=== PATIENT | female | born 1990 | race Caucasian/White ===

== ENCOUNTER → 2021-01-01 11:10 | Outpatient (BNVA) | payer OTHER, SELFPAY | PROVIDERS: PCP Internal Medicine; Visit Provider Advanced Practice Midwife | DX: Z13.89 Encounter for screening for other disorder (principal) | CPT/HCPCS: 99212 ==

== ENCOUNTER → 2021-01-11 13:04 | Outpatient (BNVA) | payer OTHER, SELFPAY | PROVIDERS: PCP Internal Medicine; Visit Provider Advanced Practice Midwife | DX: Z30.017 Encounter for initial prescription of implantable subdermal contraceptive (principal) | CPT/HCPCS: 11981 ==

== ENCOUNTER → 2021-03-16 08:54 | Outpatient (BNVA) | payer OTHER, SELFPAY | PROVIDERS: Visit Provider Advanced Practice Midwife | DX: Z30.46 Encounter for surveillance of implantable subdermal contraceptive (principal); N64.4 Mastodynia | CPT/HCPCS: 99212 ==

== ENCOUNTER 2021-04-13 09:52 | Outpatient (REF) | payer OTHER, SELFPAY ==
[2021-04-19 05:42] LABS: HPV 16 RNA NOT DETECTED (NOT DETECTED); HPV mRNA E6/E7 rflx Detected (Not Detected)
== END 2021-04-13 09:53 | disposition home or self-care (01) ==
LOC: HO.LAB 09:52
PROVIDERS: Visit Provider Advanced Practice Midwife
DX: Z01.419 Encounter for gynecological examination (general) (routine) without abnormal findings (principal); Z11.51 Encounter for screening for human papillomavirus (HPV); Z80.3 Family history of malignant neoplasm of breast
CPT/HCPCS: 87624; 87625; 88142

== ENCOUNTER 2021-08-17 17:23 | Outpatient (REF) | payer OTHER, SELFPAY ==
[2021-08-17 17:42] LABS: IDNOW Serial# 08D9AD1C; Strep A Nucleic Acid Positive (Negative)
== END 2021-08-17 17:24 | disposition home or self-care (01) ==
LOC: HO.LNP 17:23
PROVIDERS: Visit Provider Physician Assistant Medical
DX: J02.9 Acute pharyngitis, unspecified (principal)
CPT/HCPCS: 87651

== ENCOUNTER 2021-12-03 10:17 | Outpatient (REF) | payer OTHER, SELFPAY ==
[2021-12-03 16:02] LABS: CT PCR NOT DETECTED (Not Detect.)
[2021-12-03 16:03] LABS: NG PCR NOT DETECTED (Not Detect.)
[2021-12-04 15:48] LABS: BV Int Neg Control Negative (Negative); BV Int Pos Control Positive (Positive)
== END 2021-12-03 10:18 | disposition home or self-care (01) ==
LOC: HO.LAB 10:17
PROVIDERS: Visit Provider Advanced Practice Midwife
DX: R10.2 Pelvic and perineal pain (principal); N64.4 Mastodynia; Z30.40 Encounter for surveillance of contraceptives, unspecified; Z32.00 Encounter for pregnancy test, result unknown
CPT/HCPCS: 81003; 81025; 87086; 87480; 87491; 87510; 87591; 87660; 99212

== ENCOUNTER 2022-07-09 05:52 | Emergency (ER) | payer OTHER, SELFPAY ==
--- NOTE | ~2022-07-09 | XR_ITS ---
EXAMINATION: XR CHEST CLINICAL INFORMATION: Chest pain COMPARISON: None TECHNIQUE: 2 views of the chest were obtained. FINDINGS: Lungs are well-inflated and clear. Trachea is midline in position. No interstitial disease, consolidation or mass. No pleural effusion or pneumothorax. Cardiac silhouette and pulmonary vessels are normal in size. The mediastinum and griffin have normal contour. The visualized bones, and upper abdomen, are unremarkable. XR/XR chest 2V IMPRESSION: No acute cardiopulmonary abnormality.
[2022-07-09 06:38] VITALS: BP 150/94; PULSE 80; RESP 16; TEMP 36.7; O2SAT 97; BMI 33.3
[2022-07-09 08:10] LABS: MANUAL DIFF FLAG NO
[2022-07-09 08:21] LABS: Basophils Absolute Auto 0.1 X10*3/uL (0.0-0.2); Basophils Percent Auto 0.9 % (0-2); Eosinophils Absolute Auto 0.1 X10*3/uL (0.0-0.4); Eosinophils Percent Auto 2.3 % (0-4); Hematocrit 41.3 % (37.0-47.0); Hemoglobin 13.9 g/dl (12.0-16.0); Imm Gran Abs Auto 0.02 X10*3/uL (0.00-0.03); Imm Gran Pct Auto 0.3 % (0.0-0.4); Lymphocytes Absolute Auto 1.3 X10*3/uL (1.2-4.9); Lymphocytes Percent Auto 22.9 % (20-40); Mean Corpuscular HGB Conc 33.7 g/dl (31.0-35.0); Mean Corpuscular Hemoglobin 28.1 pg (27.0-33.0); Mean Corpuscular Volume 83.4 fL (80.0-98.0); Mean Platelet Volume 9.6 fL (9.4-12.3); Monocytes Absolute Auto 0.3 X10*3/uL (0.1-1.2); Monocytes Percent Auto 5.2 % (2-11); Neutrophils Absolute Auto 3.9 x10*3/uL (2.0-8.3); Neutrophils Percent Auto 68.4 % (45-73); Platelet Count 213 X10*3/uL (160-400); Red Blood Count 4.95 X10*6/uL (4.20-5.50); White Blood Count 5.7 X10*3/uL (4.8-10.8)
--- NOTE | 2022-07-09 08:26 | ED.GENADULT ---
HPI - General Adult General Chief complaint: General Medical Stated complaint: in pain, blurry vision Time Seen by Provider: 07/09/22 07:23 Source: patient Mode of arrival: ambulatory Limitations: no limitations History of Present Illness HPI narrative: She presented to the emergency department with a chief complaint of right breast pain ongoing for months, denies any trauma any fever chills vomiting diarrhea. Onset (ago): month(s) Location: chest (Right breast) Radiation: non-radiation Severity: moderate Quality: burning Pain Consistency: constant Relieving factors: none Exacerbating factors: none Related Data Home Medications Medication Instructions Recorded Confirmed etonogestrel 68 mg subdermal subdermal 01/11/21 08/17/21 implant Previous Rx's Medication Instructions Recorded amoxicillin 875 mg-potassium 1 tab PO Q12H 10 days #20 tabs 08/17/21 clavulanate 125 mg tablet (Augmentin) dexamethasone 4 mg tablet 8 mg PO DAILY 1 day #2 tabs 08/17/21 metronidazole 500 mg tablet 500 mg PO BID 7 days #14 tabs 12/04/21 erythromycin 5 mg/gram (0.5 %) eye 0.5 inch ophthalmic (eye) TID #1 g 01/29/22 ointment Allergies Allergy/AdvReac Type Severity Reaction Status Date / Time No Known Allergies Allergy Verified 01/29/22 10:24 [No Known Allergies*] Review of Systems Review of Systems: Yes all other systems are reviewed and are negative Constitutional: Constitutional: Reports no additional constitutional complaints ENT: Reports system reviewed and no additional complaints, except as documented Cardiovascular: Cardiovascular: Reports no additional cardiovascular complaints Respiratory: Respiratory: Reports no additional respiratory complaints Genitourinary: Genitourinary: Reports no additional female genitourinary complaints Integumentary/Breasts: Skin/Breast: Reports system reviewed and no additional complaints, except as docu PMFSH Past Medical History Medical History Depression Head ache HTN (hypertension) Surgical History History of placement of ear tubes Hx of section Family History Family History Mother History of breast cancer Social History Social History Alcohol intake: former Substance Use Type: Marijuana Gender identity: Female Physical Exam ED Vital Signs: Vital Signs - 24 hr 07/09/22 06:38 07/09/22 09:14 Temperature 98.1 F 98.0 F Pulse Rate 80 83 Respiratory Rate 16 18 Blood Pressure 150/94 H 127/85 Pulse Oximetry 97 99 Oxygen Delivery Method Room Air Room Air BMI result Body Mass Index 33.3 Const General: cooperative and healthy appearing Nutritional Appearance: well nourished Orientation/consciousness: patient oriented x3 Limitations: no limitations HENMT Head: Yes normal to inspection Ears: hearing grossly normal bilaterally General nose exam: Normal external nose present Face and sinus: Yes normal facial exam Mouth: Normal oral and palatal mucosa present Throat: Yes posterior oropharynx normal Neck Neck: Yes normal visual inspection Carotids: normal carotid upstroke Chest Chest palpation & inspection: normal inspection of the chest Breast/axilla palpation: other (Examination the right breast shows no abscess no lump no induration) Resp Effort & Inspection: normal respiratory effort Auscultation: clear to auscultation bilaterally Cardio Jugular venous distension: no JVD Rate: regular rate Rhythm: regular rhythm GI Inspection: Yes normal to inspection Palpation (GI): Soft to palpation, not firm, nontender and no guarding Skin General skin exam: no rashes or lesions noted Neuro General: patient oriented x3 Medical Decision Making Lab Data Result diagrams: 07/09/22 08:05 07/09/22 08:05 Labs: Lab Results 07/09/22 07/09/22 Range/Units 08:05 08:05 WBC 5.7 (4.8-10.8) X10*3/uL RBC 4.95 (4.20-5.50) X10*6/uL Hgb 13.9 (12.0-16.0) g/dl Hct 41.3 (37.0-47.0) % MCV 83.4 (80.0-98.0) fL MCH 28.1 (27.0-33.0) pg MCHC 33.7 (31.0-35.0) g/dl RDW 13.0 (11.0-16.0) % Plt Count 213 (160-400) X10*3/uL MPV 9.6 (9.4-12.3) fL Immature Gran % (Auto) 0.3 (0.0-0.4) % Neut % (Auto) 68.4 (45-73) % Lymph % (Auto) 22.9 (20-40) % [place] % (Auto) 5.2 (2-11) % Eos % (Auto) 2.3 (0-4) % Baso % (Auto) 0.9 (0-2) % Lymph # (Auto) 1.3 (1.2-4.9) X10*3/uL [place] # (Auto) 0.3 (0.1-1.2) X10*3/uL Eos # (Auto) 0.1 (0.0-0.4) X10*3/uL Baso # (Auto) 0.1 (0.0-0.2) X10*3/uL Abs Immat Gran (auto) 0.02 (0.00-0.03) X10*3/uL Absolute Neuts (auto) 3.9 (2.0-8.3) x10*3/uL Absolute Nucleated RBC 0.000 (0.0-0.012) X10*3/uL Nucleated RBC % (auto) 0.0 (0.0-0.2) /100WBC Sodium 140 (135-145) mmol/L Potassium 4.6 (3.3-5.1) mmol/L Chloride 106 (96-108) mmol/L Carbon Dioxide 25 (22-29) mmol/L Anion Gap 14 (12-20) BUN 10 (9-16) mg/dL Creatinine 0.71 (0.5-1.4) mg/dL Estim Creat Clear Calc 126.6 Estimated GFR > 60 Random Glucose 111 (60-115) mg/dL Calcium 9.2 (8.4-10.2) mg/dL Total Bilirubin 0.7 (0.0-1.0) mg/dL AST 13 (5-31) U/L ALT 17 (0-31) U/L Alkaline Phosphatase 44 (39-117) U/L Total Protein 7.7 (6.5-8.0) g/dL Albumin 4.5 (3.5-5.0) g/dL Beta HCG, Quant < 2 mIU/mL Discharge Plan Discharge Clinical Impression: Breast pain Patient Disposition: Home, Self-Care Instructions: Chest Wall Pain (ED) Prescriptions: No Action metronidazole 500 mg tablet 500 mg PO BID 7 Days Qty: 14 0RF amoxicillin-pot clavulanate [Augmentin] 875-125 mg tablet 1 tab PO Q12H 10 Days Qty: 20 0RF dexamethasone 4 mg tablet 8 mg PO DAILY 1 Days Qty: 2 0RF erythromycin 5 mg/gram (0.5 %) ointment 0.5 inch ophthalmic (eye) TID Qty: 1 0RF Nexplanon 68 mg implant subdermal Stand Alone Forms: Work/School Release Interventions: ED Discharge Assessment Last Done: 07/09/22 09:21 Discharge Date/Time: 07/09/22 09:22
[2022-07-09 08:33] LABS: Alanine Aminotransferase 17 U/L (0-31); Albumin Level 4.5 g/dL (3.5-5.0); Alkaline Phosphatase 44 U/L (39-117); Anion Gap 14 (12-20); Aspartate Amino Transferase 13 U/L (5-31); Bilirubin Total 0.7 mg/dL (0.0-1.0); Blood Urea Nitrogen 10 mg/dL (9-16); Calcium 9.2 mg/dL (8.4-10.2); Carbon Dioxide 25 mmol/L (22-29); Chloride 106 mmol/L (96-108); Creatinine Clr Calc Pharmacy 126.6; Estimated Glomerular Filt Rate > 60; Glucose Random 111 mg/dL (60-115); Potassium 4.6 mmol/L (3.3-5.1); Sodium 140 mmol/L (135-145); Total Protein 7.7 g/dL (6.5-8.0)
[2022-07-09 08:39] LABS: HCG Quantitative < 2 mIU/mL
[2022-07-09 09:14] VITALS: BP 127/85; PULSE 83; RESP 18; TEMP 36.7; O2SAT 99
== END 2022-07-09 09:22 | disposition home or self-care (01) ==
PROVIDERS: Emergency Provider Emergency Medicine
DX: H53.8 Other visual disturbances (principal); N64.4 Mastodynia; R07.89 Other chest pain; Z79.899 Other long term (current) drug therapy
CPT/HCPCS: 36415; 71046; 80053; 84702; 85025; 99283; 99284

== ENCOUNTER → 2022-07-10 12:57 | Outpatient (BNVA) | payer OTHER, SELFPAY | PROVIDERS: Visit Provider Advanced Practice Midwife | DX: N64.4 Mastodynia (principal); Z80.3 Family history of malignant neoplasm of breast | CPT/HCPCS: 99212 ==

== ENCOUNTER 2022-07-19 13:20 | Outpatient (REF) | payer OTHER, SELFPAY ==
--- NOTE | ~2022-07-19 | MM_ITS ---
EXAMINATION: MM DIAGNOSTIC DIGITAL BREAST TOMOSYNTHESIS, BILATERAL US DIAGNOSTIC ULTRASOUND BREAST, RIGHT CLINICAL INFORMATION: 32-year-old female with chronic noncyclical right breast pain, approximately one year. No palpable mass or discharge. No prior breast imaging. Family history breast cancer, mother. The lifetime risk of breast cancer based on the Tyrer-Cuzick Model is 18%. COMPARISON: None (current study represents initial baseline exam). TECHNIQUE: Digital breast tomosynthesis is performed in both the craniocaudal and mediolateral oblique views along with computer-aided detection (CAD). Synthesized 2D images are generated from the tomosynthesis. Additional views are obtained: Right ML, right MLO, spot right CC. Ultrasound right breast is targeted to the areas of clinical concern with grayscale imaging and color Doppler without and with harmonics. Imaging performed from 10:00 through 4:00 position. FINDINGS: The breasts are heterogeneously dense, which may obscure small masses (ACR BI-RADS breast composition Category c). There is small oval parenchymal asymmetry posterior 3:30 o'clock right breast, just under1.5 cm. The remainder of the bilateral breasts show no mass or architectural abnormality. There are no abnormal calcifications. The axilla are unremarkable. There is no skin thickening or coarsening of the Handy's ligaments. Ultrasound right breast demonstrates a macrolobulated solid mass 3:00 position approximately 9 cm from nipple measuring around 1.4 cm in greatest dimension. The remainder of the right breast shows no cystic or solid mass or architectural abnormality. No focal duct ectasia. No skin thickening or edema tracking in soft tissue planes. Results are discussed with the patient at time of visit. The solid nodule posterior medial right breast most likely represents a benign fibroadenoma. Management options were discussed. Patient favors percutaneous sampling rather than serial imaging follow-up. Results called to office (CHITO Marmolejo) for comparison Kia Salazar CNM on 07/19/2022. MM/MM tomosynthesis diagnostic BI IMPRESSION: -No mammographic evidence of malignancy or inflammatory changes. -Macrolobulated solid mass right posteromedial breast, probable fibroadenoma. ASSESSMENT: BI-RADS 4: Suspicious (subcategory 4A: Low suspicion for malignancy) RECOMMENDATION: -Ultrasound-guided core biopsy right breast mass. -Patient's chronic noncyclical right breast pain may be managed based on the clinical impression. This patient's information was entered into a reminder system with a target due date for their next mammogram.
== END 2022-07-19 13:21 | disposition home or self-care (01) ==
LOC: HO.MAMMO 13:20
PROVIDERS: Visit Provider Advanced Practice Midwife
DX: N64.4 Mastodynia (principal); Z80.3 Family history of malignant neoplasm of breast
CPT/HCPCS: 76642; 77062; 77066

== ENCOUNTER 2022-07-23 09:08 | Outpatient (REF) | payer OTHER, SELFPAY ==
--- NOTE | ~2022-07-23 | MM_ITS ---
EXAMINATION: ULTRASOUND GUIDED CORE BIOPSY BREAST, RIGHT POST PROCEDURE DIGITAL MAMMOGRAM, RIGHT CLINICAL INFORMATION: 32-year-old with palpable nodule posterior medial right breast, likely fibroadenoma. Family history breast cancer, mother. TC score 18%. COMPARISON: Mammography and right breast ultrasound 07/19/2022. FINDINGS: Proper informed consent is obtained from the patient after discussion of the procedure, potential risks and complications, and alternatives. Patient was given an opportunity for questions. The patient appeared to understand. The patient consented to the procedure and signed the consent form. GUIDANCE: Ultrasound-guided; aseptic technique. LESION: Macrolobulated nodule posterior 3:30 o'clock right breast, approximately 1.4 cm. Suspect fibroadenoma. APPROACH: Oblique caudal cranial. ANESTHESIA: 10 mL carbonated 1% lidocaine. DERMATOTOMY: Single skin willi dermatotomy performed. NEEDLE: 14-gauge Achieve core biopsy device with 13.5-gauge co-axial guide needle. CORES: 6. CLIP: HydroMARK; shape: butterfly. POST PROCEDURE UNILATERAL DIGITAL MAMMOGRAM: The post biopsy mammogram is performed in separate room using separate digital mammography equipment from the biopsy procedure. CC and MLO x2 views are obtained. The breasts are heterogeneously dense, which may obscure small masses (breast composition category: c). The clip marker is in position. No gross hematoma. The patient tolerated the procedure well. No immediate complications. Home instructions reviewed with the patient. Final pathology results are pending. MM/MM tomosynthesis diagnostic RT IMPRESSION: 1. Status post ultrasound-guided core biopsy right breast. 2. Clip placed: HydroMARK; shape: butterfly. 3. Pathology pending. An addendum report will be issued.
[2022-07-23] MEDS: Lidocaine HCl 1 % 20 ML VIAL 9 ML SUBCUT (10:55)
[2022-07-23] MEDS: Sodium Bicarbonate 8.4% 50 MEQ/50 ML VIAL SUBCUT (10:55)
== END 2022-07-23 09:09 | disposition home or self-care (01) ==
LOC: HO.MAMMO 09:08
PROVIDERS: Absent Provider Surgery; Visit Provider Advanced Practice Midwife
DX: N63.15 Unspecified lump in the right breast, overlapping quadrants (principal); N64.4 Mastodynia; Z80.3 Family history of malignant neoplasm of breast
CPT/HCPCS: 19083; 77061; 77065; 88305; 99202

== ENCOUNTER → 2022-07-26 09:54 | Outpatient (BNVA) | payer OTHER, SELFPAY | PROVIDERS: PCP Advanced Practice Midwife; Visit Provider Surgery | DX: D24.1 Benign neoplasm of right breast (principal); N64.4 Mastodynia; R92.8 Other abnormal and inconclusive findings on diagnostic imaging of breast; Z80.3 Family history of malignant neoplasm of breast | CPT/HCPCS: 99212 ==

== ENCOUNTER 2022-08-07 08:39 | Day surgery (SDC) | payer OTHER, SELFPAY ==
[2022-08-02 11:24] VITALS: BMI 36.4
--- NOTE | 2022-08-06 08:27 | HO.ANESPROP2 ---
Documented by User: Zainab Frye NP 08/06/22 08:28 HPI - Anesthesia Eval Consult details Narrative: 32yo F for Right Breast Lumpectomy/Needle Loc PMFSH Active Problems Active Problems: All Active Problems (Updated 07/29/22 @ 11:38 by Kenton Vázquez MD) Fibroadenoma of right breast (Acute) Abnormal ultrasound of breast (Acute) Family history of breast cancer in first degree relative (Acute) Mastalgia in female (Acute) Conjunctivitis, both eyes (Acute) Acute pharyngitis (Acute) Past Medical History Medical History Depression Head ache HTN (hypertension) Family History Family History Mother History of breast cancer Surgical History Surgical History History of placement of ear tubes Hx of section Social History Social History Alcohol intake: former Patient Tobacco Use Status: Never used Tobacco Substance Use Type: Marijuana Are you DNR?: No Advance Directives: No Advance Directives Information Provided: Yes Patient : No FDLMP: last mth Sexual orientation: Straight/Heterosexual Gender identity: Female Meds Allergies Allergy/AdvReac Type Severity Reaction Status Date / Time No Known Allergies Allergy Verified 07/26/22 10:23 [No Known Allergies*] Home Medications Medication Instructions Recorded Confirmed Last Taken Type etonogestrel 68 mg subdermal subdermal 01/11/21 07/26/22 Unknown History implant Exam Exam Date and Time: August 06, 2022 0827 Height,Weight and Vital Signs: Height 5 ft 5 in Weight 99.337 kg Pertinent Lab Results Pertinent Lab Results: Laboratory Tests 07/09/22 07/09/22 08:05 08:05 WBC 5.7 Hgb 13.9 Hct 41.3 Plt Count 213 Sodium 140 Potassium 4.6 Chloride 106 Carbon Dioxide 25 BUN 10 Creatinine 0.71 Assessment and Plan Assessment Anesthesia Assessment: Chart Reviewed Documented by User: Tati Foote MD 08/07/22 12:11 PMF Past Medical History Medical History Depression Head ache HTN (hypertension) Functional capacity: independent ambulation Patient : No Family History Family History Mother History of breast cancer Family history of problems with anesthesia: No Surgical History Surgical History History of placement of ear tubes Hx of section History of Problems with Anesthesia: No Social History Social History Alcohol intake: former Patient Tobacco Use Status: Never used Tobacco Substance Use Type: Marijuana Are you DNR?: No Advance Directives: No Advance Directives Information Provided: Yes Patient : No FDLMP: last mth Sexual orientation: Straight/Heterosexual Gender identity: Female Meds Allergies Allergy/AdvReac Type Severity Reaction Status Date / Time No Known Allergies Allergy Verified 07/26/22 10:23 [No Known Allergies*] Home Medications Medication Instructions Recorded Confirmed Last Taken Type etonogestrel 68 mg subdermal subdermal 01/11/21 07/26/22 Unknown History implant Exam Airway Mallampati Class: II TM Dist: >3cm Neck ROM: Full Heart: RRR Lungs: CTA Assessment and Plan Final Anesthetic Review Family History of Problems with Anesthesia: No History of Problems with Anesthesia: No ASA Class: II Final Preanesthetic Review: No Changes in Pt Med Stat, Meds/Allgs Chart Reviewed, Consent Obtained/Reviewed and Anes Risks/Benef Reviewed Patient Risk: Low Procedure Risk: Low Anesthetic Plan Anesthetic Plan: GA Disposition: Standard PACU
--- NOTE | ~2022-08-07 | MM_ITS ---
EXAMINATION: US ULTRASOUND-GUIDED NEEDLE LOCALIZATION BREAST, RIGHT MM DIGITAL MAMMOGRAPHY BREAST POST LOCALIZATION, RIGHT NEEDLE LOCALIZATION SPECIMEN RADIOGRAPH FROM THE RIGHT BREAST CLINICAL INFORMATION: Fibroadenoma posterior medial right breast for excision. COMPARISON: Mammography and right breast ultrasound 07/19/2022 and 07/23/2022. TECHNIQUE NEEDLE LOC: Proper informed consent is obtained from the patient after discussion of the procedure, potential risks and complications, and alternatives including declining the procedure today. Patient was given an opportunity for questions. The patient appeared to understand. The patient consented to the procedure and signed the consent form. GUIDANCE: Real time ultrasound guidance APPROACH: Oblique caudal cranial. TARGET: Fibroadenoma postero medial right breast with HydroMark clip marker. ANESTHESIA: 8 mL carbonated lidocaine 1% LOCALIZATION MARKER: [place] MammaLok 7.5 cm length. POSTPROCEDURE UNILATERAL DIGITAL MAMMOGRAM: [facility] The breasts are heterogeneously dense, which may obscure small masses (ACR BI-RADS breast composition Category c). The biopsy clip marker is adjacent to the distal end of the localization needle. The wire is beyond the clip expected. The skin is prepped and local anesthesia administered. The needle is placed and position assessed with real time ultrasound. The wire is hooked into position. [place] needle protector placed. The patient tolerated the procedure well and had no immediate complication. Procedure results called to medical historian (Zainab) for Dr. Vázquez following the procedure. TECHNIQUE SPECIMEN RADIOGRAPH: Single radiograph of the excised breast tissue is performed. FINDINGS SPECIMEN RADIOGRAPH: The proximal needle and wire are sectioned in OR prior to delivery to radiology. The specimen shows the distal needle and distal hookwire are delivered intact. The biopsy clip marker is identified in the specimen adjacent to the localization needle. Results are called to Dr. Kenton Vázquez in the operating room at the time of imaging. MM/MM diagnostic mammo unilat RT IMPRESSION: 1. Status post ultrasound-guided right breast needle localization with wire hooked into position. 2. Postoperative specimen radiograph obtained.
[2022-08-07 09:38] VITALS: BP 144/93; PULSE 92; RESP 18; TEMP 36.6; O2SAT 98
[2022-08-07 09:59] LABS: UPreg QC Valid YES; Urine Pregnancy NEGATIVE (NEGATIVE)
[2022-08-07] MEDS: Lactated Ringers 1,000 ML 100 ML IVCONT (10:00)
--- NOTE | 2022-08-07 11:04 | MHC.SHP ---
Pre-Procedural Eval Section A Date of Service: 08/07/22 The patient is an INPATIENT: No Changes since office visit: Yes Patient answered all questions; No Cold of Flu in the past 2 weeks, No New Medical Problems and No Changes in Medication The History & Physical has been completed within 30 days and I have reviewed it.: Yes Section B Chief Complaint: Benign neoplasm of right breast Allergies: Allergies Allergy/AdvReac Type Severity Reaction Status Date / Time No Known Allergies Allergy Verified 07/26/22 10:23 [No Known Allergies*] Plan Diagnosis/Plan: Unchanged I have reviewed the history and physical and performed a pertinent physical examination on my patient. No changes have occurred unless specified.
[2022-08-07] MEDS: Lidocaine HCl 1 % MPF 5 ML VIAL 10 ML SUBCUT (11:39)
--- NOTE | 2022-08-07 12:11 | W.PM.OPN ---
Operative Note Operative Note Date of Service: 08/07/22 Narrative: Preoperative diagnosis: Fibroadenoma right breast Postoperative diagnosis: same Procedure: excision of fibroadenoma right breast Surgeon: Kenton Vázquez MD Japanese Tutor: Анна Deutsch PA-C, KATHY Conti Anesthesia: LMA general Indications for procedure: 32-year-old female patient presenting with a density in the right breast at the 3 o'clock position also noted on ultrasound. She subsequently underwent ultrasound-guided core biopsy which confirmed a fibroadenoma without atypia or malignancy. Patient has decided to have the lesion removed. She therefore presents today for a right breast lumpectomy with needle localization. Operative findings: Specimen x-ray confirms marking clip within the specimen. Specimen: right breast lumpectomy Estimated blood loss: 5 mL Complications: none Procedure details: patient was brought to the OR placed in a supine position. After administering general anesthesia the patient's right breast was prepped with ChloraPrep and draped in a sterile fashion. A surgical time-out was called And the consent confirmed. The patient received preoperative antibiotics and Venodyne boots were in place. Local anesthesia consisting of 0.5% Sensorcaine was then infiltrated just above the localizing needle entrance site in a transverse fashion at approximately 03:00 o'clock position. Incision was then made with a scalpel carried out through subcutaneous tissue. Superior inferior skin flaps were then created with electrocautery. Core of tissue around the localizing needle was then excised beginning at the superior margin then continuing to the medial and lateral margin, followed by the inferior margin and deep margin. The needle was cut with a pre assembly wirer and the lesion excised. Margins were marked with a long suture on the lateral margin, short suture on the superior margin and loop suture in the deep margin. Wounds were irrigated with saline solution suctioned dry. Wounds were checked for hemostasis which was assured using electrocautery. Deep breast tissue was then reapproximated using interrupted 3-0 Polysorb sutures. Dermis was reapproximated using interrupted 3-0 Polysorb sutures. Skin was then closed using a running subcuticular 4-0 Polysorb suture. Steri-Strips and 2 x 2 gauze were then applied followed by Tegaderm. The patient tolerated the procedure well. Sponge, instrument, and needle counts were reported as correct. The patient was transferred to PACU in stable condition.
[2022-08-07 12:33] VITALS: BP 146/86; PULSE 90; RESP 18; TEMP 36.8; O2SAT 98
[2022-08-07 12:38] VITALS: BP 148/89; PULSE 83; RESP 19; O2SAT 98
[2022-08-07 12:43] VITALS: BP 144/87; PULSE 78; RESP 15; O2SAT 98
[2022-08-07 12:48] VITALS: BP 148/85; PULSE 80; RESP 17; O2SAT 98
[2022-08-07 13:03] VITALS: BP 159/90; PULSE 98; RESP 19; TEMP 36.8; O2SAT 99
== END 2022-08-07 14:19 | disposition home or self-care (01) ==
PROVIDERS: Nurse Practitioner; Visit Provider Surgery
PROC: (CPT 19301; principal; 2022-08-07 11:50)
DX: D24.1 Benign neoplasm of right breast (principal); Z80.3 Family history of malignant neoplasm of breast; N64.4 Mastodynia; I10 Essential (primary) hypertension; R51.9 Headache, unspecified; F32.A Depression, unspecified; F12.90 Cannabis use, unspecified, uncomplicated
CPT/HCPCS: 19301; 19285; 77062; 77065; 81025; 88307; 88329; A4648; J0690; J1100; J2250; J2405; J2795; J3010

== ENCOUNTER 2022-12-04 13:14 | Outpatient (REF) | payer OTHER, SELFPAY ==
[2022-12-07 07:33] LABS: HPV mRNA E6/E7 rflx Not Detected (Not Detected)
== END 2022-12-04 13:15 | disposition home or self-care (01) ==
LOC: HO.LNP 13:14
PROVIDERS: Visit Provider Advanced Practice Midwife
DX: Z01.419 Encounter for gynecological examination (general) (routine) without abnormal findings (principal)
CPT/HCPCS: 87624; 88142

== ENCOUNTER 2023-01-31 06:45 | Emergency (ER) | payer OTHER, SELFPAY ==
--- NOTE | ~2023-01-31 | CT_ITS ---
EXAMINATION: CT ABDOMEN AND PELVIS WITHOUT CONTRAST CLINICAL INFORMATION: Abdominal pain. COMPARISON: None available. TECHNIQUE: Multidetector volumetric imaging was performed from the superior aspect of the liver through the pubic symphysis. Sagittal and coronal reformatted images were obtained on the technologist's workstation. This CT examination was performed using dose optimization techniques as appropriate, variously including the following: *Automated exposure control *Adjustment of mA and/or kV according to patient size (this includes techniques or standardized protocols for targeted exams where dose is matched to indication/reason for exam; i.e. extremities or head) *Use of iterative reconstruction technique DLP: 852 mGy-cm FINDINGS: LUNG BASES: The visualized lung bases are unremarkable. LIVER, GALLBLADDER, AND BILIARY TREE: Hepatic enlargement and diffuse decreased attenuation without focal abnormality. No gallbladder/biliary abnormality. PANCREAS: Unremarkable. SPLEEN: Unremarkable. ADRENAL GLANDS: Unremarkable. 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 No hydronephrosis, hydroureter, or calculi seen. No perinephric stranding. BLADDER: Unremarkable. GASTROINTESTINAL TRACT: The stomach, small bowel and appendix are unremarkable. The colon and rectum are unremarkable. ABDOMINAL WALL: Small fat-containing umbilical hernia without associated abnormality. LYMPH NODES: No lymphadenopathy. VASCULAR: Unremarkable. PELVIC VISCERA: Unremarkable. OSSEOUS STRUCTURES: L5-S1 mild disc space narrowing. CT/CT abdomen pelvis wo IV con IMPRESSION: 1. No acute intra-abdominal/pelvic abnormality to explain the patient's pain. 2. Hepatomegaly and hepatic steatosis without focal abnormality. 3. Small fat-containing umbilical hernia without associated abnormality. 4. L5-S1 mild disc space narrowing.
[2023-01-31 06:52] VITALS: BP 145/93; PULSE 84; RESP 18; TEMP 36.7; O2SAT 98; BMI 38.3
--- NOTE | 2023-01-31 07:24 | ED_ITS ---
HPI - Nausea/Vomiting/Diarrhea General Chief complaint: Nausea/Vomiting/Diarrhea Stated complaint: vomiting/basqa108/dizziness Time Seen by Provider: 01/31/23 07:02 History of Present Illness HPI Narrative: Patient is a 32-year-old female presents today with having nausea. No history of abdominal surgery in the past. Patient had episodes of vomiting yesterday. Had a fever this morning of up to 102. Did not take any medication. Denies any pain on urination. No change in frequency. No coughing or congestion or upper respiratory symptoms. No diaphoresis. Patient from home. Related Data Home Medications Medication Instructions Recorded Confirmed etonogestrel 68 mg subdermal subdermal 01/11/21 08/15/22 implant Previous Rx's Medication Instructions Recorded ondansetron 4 mg disintegrating 4 mg PO TID PRN nausea and 01/31/23 tablet vomiting 5 days #10 tabs sulfamethoxazole 800 1 tab PO BID 7 days #14 tabs 01/31/23 mg-trimethoprim 160 mg tablet (Bactrim DS) Allergies Allergy/AdvReac Type Severity Reaction Status Date / Time No Known Allergies Allergy Verified 01/31/23 06:55 [No Known Allergies*] Review of Systems Review of Systems: Positive nausea Positive fever Yes all other systems are reviewed and are negative PMFSH Past Medical History Attestation statement: The following information was validated with the patient. Medical History Abnormal Pap smear of cervix Depression Head ache HTN (hypertension) Surgical History History of lumpectomy of right breast (08/07/22) History of placement of ear tubes Hx of section Family History Family History Mother History of breast cancer Social History Social History Alcohol intake: never Patient Tobacco Use Status: Never used Tobacco Smoked in Last 30 Days: No Use of substances other than those prescribed or required for medical reasons: No Substance Use Type: Marijuana Advance Directives: No Advance Directives Information Provided: Yes Patient : No Sexual orientation: Straight/Heterosexual Gender identity: Female Physical Exam Vital Signs: Vital Signs: Last Vital Signs Temp 98.7 F 01/31/23 11:03 Pulse 83 01/31/23 11:03 Resp 13 01/31/23 11:03 BP 132/84 01/31/23 11:03 Pulse Ox 97 01/31/23 11:03 O2 Del Method Room Air 01/31/23 11:03 BMI result Body Mass Index 38.3 Appearance: Alert. Oriented X3. No acute distress. Eyes: Pupils equal, round and reactive to light. ENT: Pharynx normal. Neck: Normal inspection. Neck supple. No lymph nodes noted. No crepitus CVS: Normal heart rate and rhythm. Pulses normal. Normal S1 and S2 Respiratory: No respiratory distress. Breath sounds normal. No Wheezing. No rales Abdomen: Soft and nontender. No rigidity. No distention. good BS x4 Skin: Skin warm and dry. Normal skin color. Normal skin turgor. Extremities: No lower extremity edema. Neurovascular intact to all extremities. No Lacerations. No Rash Neuro: Oriented X 3. No motor deficit. No sensory deficit. Moving all extermities. No slurred speech Medications Administered Discontinued Medications Generic Name Dose Route Start Last Admin Trade Name Freq PRN Reason Stop Dose Admin Sodium Chloride 1,000 mls @ 999 mls/hr 01/31/23 07:30 01/31/23 09:24 Ns IV 01/31/23 08:30 Infused .Q1H1M ALE Infusion Ceftriaxone Sodium 1 gm/ 50 mls @ 100 mls/hr 01/31/23 08:12 01/31/23 09:24 Sodium Chloride IV 01/31/23 08:41 Infused ONCE ONE Infusion Ondansetron HCl 4 mg 01/31/23 07:23 01/31/23 07:56 Ondansetron Hcl 4 Mg/2 Ml Vial IVPUSH 01/31/23 07:24 4 mg ONCE ONE Administration Medical Decision Making Medical Decision Making MDM Narrative: Patient's CT of the abdomen pelvis showed no acute evidence of obstruction abscess perforation. No evidence of biliary disease. No evidence for appendicitis. Urine did show a UTI. There is no CVA tenderness no evidence for pyelo. Labs are otherwise unremarkable. Given a dose of Rocephin will give additional antibiotic on an outpatient basis patient is young healthy no significant past medical history she will be discharged home. Currently in stable condition. Well appearing. Tolerating fluids. Patient's RSV COVID influenza were all negative. Differential Diagnosis Urinary tract infection, obstruction, abscess, perforation, appendicitis Admission/Observation Consideration of admission/observation: Escalation of care including admission/observation considered Lab Data MDM Lab Attestation statement: I reviewed the patient's lab results. 01/31/23 07:50 01/31/23 07:50 Labs: Lab Results 01/31/23 01/31/23 01/31/23 Range/Units 07:50 07:50 07:50 WBC 4.9 (4.8-10.8) X10*3/uL RBC 4.95 (4.20-5.50) X10*6/uL Hgb 14.0 (12.0-16.0) g/dl Hct 40.5 (37.0-47.0) % MCV 81.8 (80.0-98.0) fL MCH 28.3 (27.0-33.0) pg MCHC 34.6 (31.0-35.0) g/dl RDW 13.2 (11.0-16.0) % Plt Count 226 (160-400) X10*3/uL MPV 9.2 L (9.4-12.3) fL Immature Gran % (Auto) 0.2 (0.0-0.4) % Neut % (Auto) 59.2 (45-73) % Lymph % (Auto) 32.5 (20-40) % [place] % (Auto) 5.5 (2-11) % Eos % (Auto) 2.0 (0-4) % Baso % (Auto) 0.6 (0-2) % Lymph # (Auto) 1.6 (1.2-4.9) X10*3/uL [place] # (Auto) 0.3 (0.1-1.2) X10*3/uL Eos # (Auto) 0.1 (0.0-0.4) X10*3/uL Baso # (Auto) 0.0 (0.0-0.2) X10*3/uL Abs Immat Gran (auto) 0.01 (0.00-0.03) X10*3/uL Absolute Neuts (auto) 2.9 (2.0-8.3) x10*3/uL Absolute Nucleated RBC 0.000 (0.0-0.012) X10*3/uL Nucleated RBC % (auto) 0.0 (0.0-0.2) /100WBC Sodium 141 (135-145) mmol/L Potassium 4.4 (3.3-5.1) mmol/L Chloride 108 (96-108) mmol/L Carbon Dioxide 25 (22-29) mmol/L Anion Gap 12 (12-20) BUN 7 L (9-16) mg/dL Creatinine 0.74 (0.5-1.4) mg/dL Estim Creat Clear Calc 130.9 Estimated GFR > 60 Random Glucose 113 (60-115) mg/dL Calcium 9.4 (8.4-10.2) mg/dL Total Bilirubin 0.7 (0.0-1.0) mg/dL Direct Bilirubin 0.2 (0.0-0.5) mg/dL AST 15 (5-31) U/L ALT 26 (0-31) U/L Alkaline Phosphatase 49 (39-117) U/L Total Protein 7.5 (6.5-8.0) g/dL Albumin 4.5 (3.5-5.0) g/dL Urine Color Yellow Urine Appearance Cloudy Urine pH 6.0 (5.0-9.0) Ur Specific [place] 1.015 (1.005-1.025) Urine Protein Negative (Neg-Trace) mg/dL Urine Glucose (UA) Negative (Negative) mg/dL Urine Ketones Negative (Negative) mg/dL Urine Blood Negative (Negative) Urine Nitrite Negative (Negative) Ur Leukocyte Esterase Moderate (2+) H (Negative) Urine RBC 0-2 (0-2) /HPF Urine WBC 0-5 (0-5) /HPF Ur Squamous Epith Cells 11-20 (0-2) /HPF Urine Bacteria 3+ (None Seen) Hyaline Casts 0-2 (0-2) /LPF Urine Test (NEGATIVE) Influenza Type A (PCR) (Negative) Influenza Type B (PCR) (Negative) RSV RNA Qual (PCR) (Negative) SARS-CoV-2 RNA (RT-PCR) (Negative) 01/31/23 01/31/23 Range/Units 07:50 07:52 WBC (4.8-10.8) X10*3/uL RBC (4.20-5.50) X10*6/uL Hgb (12.0-16.0) g/dl Hct (37.0-47.0) % MCV (80.0-98.0) fL MCH (27.0-33.0) pg MCHC (31.0-35.0) g/dl RDW (11.0-16.0) % Plt Count (160-400) X10*3/uL MPV (9.4-12.3) fL Immature Gran % (Auto) (0.0-0.4) % Neut % (Auto) (45-73) % Lymph % (Auto) (20-40) % [place] % (Auto) (2-11) % Eos % (Auto) (0-4) % Baso % (Auto) (0-2) % Lymph # (Auto) (1.2-4.9) X10*3/uL [place] # (Auto) (0.1-1.2) X10*3/uL Eos # (Auto) (0.0-0.4) X10*3/uL Baso # (Auto) (0.0-0.2) X10*3/uL Abs Immat Gran (auto) (0.00-0.03) X10*3/uL Absolute Neuts (auto) (2.0-8.3) x10*3/uL Absolute Nucleated RBC (0.0-0.012) X10*3/uL Nucleated RBC % (auto) (0.0-0.2) /100WBC Sodium (135-145) mmol/L Potassium (3.3-5.1) mmol/L Chloride (96-108) mmol/L Carbon Dioxide (22-29) mmol/L Anion Gap (12-20) BUN (9-16) mg/dL Creatinine (0.5-1.4) mg/dL Estim Creat Clear Calc Estimated GFR Random Glucose (60-115) mg/dL Calcium (8.4-10.2) mg/dL Total Bilirubin (0.0-1.0) mg/dL Direct Bilirubin (0.0-0.5) mg/dL AST (5-31) U/L ALT (0-31) U/L Alkaline Phosphatase (39-117) U/L Total Protein (6.5-8.0) g/dL Albumin (3.5-5.0) g/dL Urine Color Urine Appearance Urine pH (5.0-9.0) Ur Specific [place] (1.005-1.025) Urine Protein (Neg-Trace) mg/dL Urine Glucose (UA) (Negative) mg/dL Urine Ketones (Negative) mg/dL Urine Blood (Negative) Urine Nitrite (Negative) Ur Leukocyte Esterase (Negative) Urine RBC (0-2) /HPF Urine WBC (0-5) /HPF Ur Squamous Epith Cells (0-2) /HPF Urine Bacteria (None Seen) Hyaline Casts (0-2) /LPF Urine Test NEGATIVE (NEGATIVE) Influenza Type A (PCR) NEGATIVE (Negative) Influenza Type B (PCR) NEGATIVE (Negative) RSV RNA Qual (PCR) NEGATIVE (Negative) SARS-CoV-2 RNA (RT-PCR) NEGATIVE (Negative) Independent Historian Clinical information obtained from an independent historian. History obtained from or confirmed by: Parent External Record Review External record reviewed: Outpatient record Discharge Plan Discharge Clinical Impression: Urinary tract infection Patient Disposition: Home, Self-Care Instructions: Urinary Tract Infection in Women (DC) Prescriptions: New sulfamethoxazole-trimethoprim [Bactrim DS] 800-160 mg tablet 1 tab PO BID 7 Days Qty: 14 0RF ondansetron 4 mg tablet,disintegrating 4 mg PO TID PRN (Reason: nausea and vomiting) 5 Days Qty: 10 0RF No Action etonogestrel 68 mg implant subdermal Referrals: Physician,Unknown J [Primary Care Provider] -
[2023-01-31] MEDS: 0.9 % Sodium Chloride 1,000 ML 999 ML IV (07:56)
[2023-01-31] MEDS: ondansetron HCL 4 MG/2 ML VIAL IVPUSH (07:56)
[2023-01-31 07:58] LABS: MANUAL DIFF FLAG NO
[2023-01-31 08:01] LABS: Appearance Urine Cloudy; Color Urine Yellow; Glucose Urine UA Negative (Negative); Leukocyte Esterase Urine Moderate (2+) (Negative); Nitrite Urine Negative (Negative); Specific Gravity - Urine 1.015 (1.005-1.025); UMIC TRIGGER UACC YES; Urine Blood Negative (Negative); Urine Ketones Negative (Negative); Urine Protein Negative (Neg-Trace)
[2023-01-31 08:02] LABS: UPreg QC Valid YES; Urine Pregnancy NEGATIVE (NEGATIVE)
[2023-01-31 08:03] LABS: Basophils Percent Auto 0.6 % (0-2); Eosinophils Absolute Auto 0.1 X10*3/uL (0.0-0.4); Hematocrit 40.5 % (37.0-47.0); Imm Gran Abs Auto 0.01 X10*3/uL (0.00-0.03); Imm Gran Pct Auto 0.2 % (0.0-0.4); Lymphocytes Absolute Auto 1.6 X10*3/uL (1.2-4.9); Lymphocytes Percent Auto 32.5 % (20-40); Mean Corpuscular HGB Conc 34.6 g/dl (31.0-35.0); Mean Corpuscular Hemoglobin 28.3 pg (27.0-33.0); Mean Corpuscular Volume 81.8 fL (80.0-98.0); Mean Platelet Volume 9.2 fL (9.4-12.3); Monocytes Absolute Auto 0.3 X10*3/uL (0.1-1.2); Monocytes Percent Auto 5.5 % (2-11); Neutrophils Absolute Auto 2.9 x10*3/uL (2.0-8.3); Neutrophils Percent Auto 59.2 % (45-73); Platelet Count 226 X10*3/uL (160-400); Red Blood Count 4.95 X10*6/uL (4.20-5.50); Red Cell Distribution Width 13.2 % (11.0-16.0); White Blood Count 4.9 X10*3/uL (4.8-10.8)
[2023-01-31 08:09] LABS: Bacteria Urine 3+ (None Seen); Hyaline Casts Urine 0-2 /LPF (0-2); RBC Urine 0-2 /HPF (0-2); WBC Urine 0-5 /HPF (0-5)
[2023-01-31 08:25] LABS: Alanine Aminotransferase 26 U/L (0-31); Albumin Level 4.5 g/dL (3.5-5.0); Alkaline Phosphatase 49 U/L (39-117); Anion Gap 12 (12-20); Aspartate Amino Transferase 15 U/L (5-31); Bilirubin Direct 0.2 mg/dL (0.0-0.5); Bilirubin Total 0.7 mg/dL (0.0-1.0); Blood Urea Nitrogen 7 mg/dL (9-16); Calcium 9.4 mg/dL (8.4-10.2); Carbon Dioxide 25 mmol/L (22-29); Chloride 108 mmol/L (96-108); Creatinine Clr Calc Pharmacy 130.9; Estimated Glomerular Filt Rate > 60; Glucose Random 113 mg/dL (60-115); Potassium 4.4 mmol/L (3.3-5.1); Sodium 141 mmol/L (135-145); Total Protein 7.5 g/dL (6.5-8.0)
[2023-01-31] MEDS: cefTRIAXone sodium 1 GM in 0.9 % Sodium Chloride 50 ML IV (08:39)
[2023-01-31 08:40] LABS: Influenza A PCR NEGATIVE (Negative); Influenza B PCR NEGATIVE (Negative); Resp Syncy Virus RNA Qual PCR NEGATIVE (Negative); SARS COV2 PCR INHOUSE NEGATIVE (Negative)
[2023-01-31 09:00] VITALS: BP 138/84; PULSE 79; RESP 14; TEMP 36.5; O2SAT 98
--- NOTE | 2023-01-31 09:29 | PC.NURSE ---
Patient tolerated IVF and IV abx no nausea/vomiting currently will CTM
--- NOTE | 2023-01-31 10:38 | PC.NURSE ---
Patient resting comfortably no distress noted family at bedside will CTM
[2023-01-31 11:03] VITALS: BP 132/84; PULSE 83; RESP 13; TEMP 37.1; O2SAT 97
== END 2023-01-31 11:33 | disposition home or self-care (01) ==
PROVIDERS: Emergency Provider Emergency Medicine Emergency Medical Services
DX: N39.0 Urinary tract infection, site not specified (principal); F12.90 Cannabis use, unspecified, uncomplicated; Z20.822 Contact with and (suspected) exposure to COVID-19; Z20.828 Contact with and (suspected) exposure to other viral communicable diseases
CPT/HCPCS: 0241U; 74176; 80048; 80076; 81001; 81003; 81025; 85025; 96361; 96374; 96375; 99284; J0696; J2405

== ENCOUNTER 2023-06-03 09:39 | Outpatient (AMB) | payer OTHER, SELFPAY ==
[2023-06-03 09:48] VITALS: BP 124/80; BMI 36.6
--- NOTE | 2023-06-03 09:48 | A.OFFVIS_ITS ---
Intake Vital Signs 06/03/23 09:48 Height 5 ft 5 in Weight 220 lb BMI 36.6 BP 124/80 Intake Visit Reasons: nexplanon removal consult Intake Note: The patient agreed to use of a medical device engineer during this encounter. Scribed for JESÚS Saunders by Georgiana Kenny medical device engineer, on 06/03/2023 at 10:05am EST. Allergies No Known Allergies [No Known Allergies*] Allergy (Verified 06/03/23 09:51) HPI HPI Comments 2 History of Present Illness Details She is here today for a Nexplanon removal consult due to arm pain. Prefers to take OCP's instead for BC. Hx of HTN, untreated, has not seen by her PCP and does not have a scheduled follow up. [facility] Medical History Abnormal Pap smear of cervix Depression Encounter for surveillance of Nexplanon subdermal contraceptive Head ache HTN (hypertension) Surgical History History of lumpectomy of right breast (08/07/22) History of placement of ear tubes Hx of section Family History Mother History of breast cancer Social History Alcohol intake: never Patient Tobacco Use Status: Never used Tobacco Substance Use Type: Marijuana Sexual orientation: Straight/Heterosexual Gender identity: Female Female Reproductive History Menstrual Age of Menarche: 11 control method: implanted (Nexplanon 01/2021) Physical Exam Vital Signs: Last Vital Signs BP 124/80 06/03/23 09:48 BMI result Body Mass Index 36.6 Const General: cooperative, healthy appearing, comfortable, no acute distress, well developed, alert and awake Extrem Other: Nexplanon device palpable in left arm. slightly tender in general region. Assessment & Plan Assessment & Plan (1) Encounter for surveillance of Nexplanon subdermal contraceptive: Code(s): Z30.46 - Encounter for surveillance of implantable subdermal contraceptive Plan: Discussed: Schedule Nexplanon removal and reviewed procedure. Consult with PCP regarding HTN. All of her questions and concerns were addressed to the best of my ability and shared decision making. She is agreeable to plan of care. Coding Level of Care Code Est Pt Level 3 (84305) Diagnoses Encounter for surveillance of Nexplanon subdermal contraceptive Z30.46
== END 2023-06-03 10:17 | disposition home or self-care (01) ==
LOC: HO.HWS 09:39
PROVIDERS: Visit Provider Advanced Practice Midwife
DX: Z30.46 Encounter for surveillance of implantable subdermal contraceptive (principal)
CPT/HCPCS: 99213

== ENCOUNTER → 2023-06-03 09:39 | Outpatient (BNVA) | payer OTHER, SELFPAY | PROVIDERS: Visit Provider Advanced Practice Midwife | DX: Z30.46 Encounter for surveillance of implantable subdermal contraceptive (principal) | CPT/HCPCS: 99212 ==

== ENCOUNTER 2023-07-24 08:40 | Outpatient (AMB) | payer OTHER, SELFPAY ==
--- NOTE | 2023-07-24 08:51 | A.OFFVIS_ITS ---
Intake Vital Signs 07/24/23 08:52 Height 5 ft 5 in Weight 220 lb BMI 36.6 BP 122/80 Intake Visit Reasons: Nexplanon Removal Intake Note: The patient agreed to use of a medical field representative during this encounter. Scribed for JESÚS Saunders by Georgiana Kenny medical field representative, on 07/24/2023 at 9:09 am EST. Computer Networking Instructor Adjunct: Computer Networking Instructor Adjunct Present (Charis) Allergies No Known Allergies [No Known Allergies*] Allergy (Verified 07/24/23 08:51) HPI HPI Comments History of Present Illness Details She presents today for a Nexplanon removal due arm pain. She is planning to change to OCP's and use condoms additionally. See procedure note. [facility] Medical History Abnormal Pap smear of cervix HTN (hypertension) Head ache Depression Surgical History History of lumpectomy of right breast (08/07/22) History of placement of ear tubes Hx of section Family History Mother History of breast cancer Social History Alcohol intake: never Patient Tobacco Use Status: Never used Tobacco Substance Use Type: Marijuana Sexual orientation: Straight/Heterosexual Gender identity: Female Female Reproductive History Menstrual Age of Menarche: 11 Physical Exam Vital Signs: Last Vital Signs BP 122/80 07/24/23 08:52 BMI result Body Mass Index 36.6 Const General: cooperative, healthy appearing, comfortable, no acute distress, well developed, alert and awake Extrem General: Yes normal to inspection Left upper extremity: normal to inspection and full ROM Office Procedures Contraception Insert/Removal Details Details: HPI She was counseled and now consented as to the risks and benefits including: bleeding, pain, scarring, nerve damage and infection. Patient agrees to proceed with the procedure. Procedure The patient was placed in a supine position with her non dominant left hand resting under her head. The insertion site was located: 8-10cm from the medial epicondyle notch of the humerus, posterior to the sulcus, between the triceps and biceps muscle. The area of the previous implant was identified and the distal tip located. This area was cleansed with an alcohol prep and 3 ml of 1% Lidocaine on a 25 gauge needle and syringe was utilized for adequate anesthesia to the insertion site. After ascertaining adequate anesthesia, the area was prepped with Betadine solution. The skin over the distal tip was incised with a #11 blade scalpel and the capsule was located and entered freeing the implant from the canal. The implant was removed with a gentle tug using a mosquito clamp and removed intact. Direct pressure was applied to the insertion site for hemostasis, minimal bleeding was observed. Steri strips, Tegaderm covering, gauze pads, and Maria Antonia wrap dressing were secured with paper tape. The patient tolerated the procedure well and left the office in good condition. Nexplanon removed without complication today. Plan Instructed to leave steri-strips in place for 3-5 days and gauze and bandage for 24 hours to help prevent infection. She can take Tylenol or ibuprofen for pain prn. She was instructed to go to ER if she experiences any increased pain, fever, redness, pus or drainage or flu like sx. Leave steri-strips in place for 3-5 days and gauze and bandage for 24 hours to help prevent infection. Can take Tylenol or ibuprofen for pain prn. Go to ER if she experiences any pain, fever, redness, or flu like sx. CDF guidelines effectiveness handout given. 26432 - Removal Assessment & Plan Assessment & Plan (1) Nexplanon removal: Code(s): Z30.46 - Encounter for surveillance of implantable subdermal contraceptive Plan: See procedure note. (2) control counseling: Code(s): Z30.09 - Encounter for other general counseling and advice on contraception Plan: Instructed to start the pill within the first 5 days of the menstrual period. Recommended to take pill at same time every day and with food to prevent stomach upset. Switch to bedtime intake with food if still experiencing nausea. Consider setting the cell phone for alerts as a reminder to take the pill at the same time. Use a back up method (condoms or abstinence if needed) if any late or missed doses until the end of the pill pack. Take the dose as soon as possible, and take your regular pill on time. If you miss the pill often, then consider another option of control. Always use condoms for STD prevention if indicated. Instructed patient to take for at least 3 months the body is acclimated to it. Most side effects go away with time in the first three months. Warnings: go to ER if and loss of vision/blindness, severe headache, chest pain or difficulty breathing, severe abdominal pain, or any pain or swelling in an extremity. Return in 3 months for pill check, or sooner if any concerns. Rx sent to pharmacy. All of her questions and concerns were addressed to the best of my ability and shared decision making. She is agreeable to plan of care. (3) Initiation of OCP (BCP): Code(s): Z30.011 - Encounter for initial prescription of contraceptive pills Medications: New norethindrone (contraceptive) (Delia) 0.35 mg PO DAILY 90 tabs 1RF OCP 90 days Coding Level of Care Code Procedure Only Diagnoses Nexplanon removal Z30.46 control counseling Z30.09 Initiation of OCP (BCP) Z30.011 CPT Codes Details - Contraception: 58049 - Removal ([id number]) Comment additional coding for initial control...
[2023-07-24 08:52] VITALS: BP 122/80; BMI 36.6
== END 2023-07-24 10:34 | disposition home or self-care (01) ==
PROVIDERS: Visit Provider Advanced Practice Midwife
DX: Z30.46 Encounter for surveillance of implantable subdermal contraceptive (principal); Z30.09 Encounter for other general counseling and advice on contraception; Z30.011 Encounter for initial prescription of contraceptive pills
CPT/HCPCS: 11982

== ENCOUNTER → 2023-07-24 08:40 | Outpatient (BNVA) | payer OTHER, SELFPAY | PROVIDERS: Visit Provider Advanced Practice Midwife | DX: M79.602 Pain in left arm (principal); Z30.011 Encounter for initial prescription of contraceptive pills | CPT/HCPCS: 11982 ==

== ENCOUNTER 2023-12-19 14:15 | Outpatient (REF) | payer OTHER, SELFPAY ==
[2023-12-20 09:47] LABS: CT PCR NOT DETECTED (Not Detect.); NG PCR NOT DETECTED (Not Detect.)
[2023-12-20 11:36] LABS: BV Int Neg Control Negative (Negative); BV Int Pos Control Positive (Positive)
[2023-12-30 04:53] LABS: HPV 16 RNA NOT DETECTED (NOT DETECTED); HPV mRNA E6/E7 rflx Detected (Not Detected)
== END 2023-12-19 14:16 | disposition home or self-care (01) ==
LOC: HO.LNP 14:15
PROVIDERS: Visit Provider Advanced Practice Midwife
DX: Z01.419 Encounter for gynecological examination (general) (routine) without abnormal findings (principal); Z11.3 Encounter for screening for infections with a predominantly sexual mode of transmission
CPT/HCPCS: 0353U; 87480; 87510; 87624; 87625; 87660; 88142; 99395

== ENCOUNTER 2023-12-19 14:15 | Outpatient (AMB) | payer OTHER, SELFPAY ==
--- NOTE | 2023-12-19 14:17 | A.OFFVIS_ITS ---
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 Doing well with no concerns. She tries to eat healthy and stays active with exercise. Doing well on Delia. She denies any contraindications to control such as: migraines with aura, history of DVT or pulmonary emboli, high blood pres sure, liver disease, thrombolic disorders, Lupus, +JOSE A, breast cancer, or smoking. Currently is sexually active. She denies vaginal itching and irritation. Denies family history of breast, ovarian or colon cancer. Last pap smear 2022, negative. 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 [facility] Medical History Asthma Abnormal Pap smear of cervix HTN (hypertension) Head ache Depression Surgical History History of lumpectomy of right breast (08/07/22) History of placement of ear tubes Hx of section Family History Mother History of breast cancer Maternal Grandmother Dementia Paternal Grandmother Alzheimer disease Social History Household Members: Family Housing: Apartment Alcohol intake: never Patient Tobacco Use Status: Never used Tobacco Substance Use Type: Marijuana Last Used Substance Other:: 3 times per week Sexually active: Yes Sexual orientation: Straight/Heterosexual Gender identity: Female Female Reproductive History Menstrual Age of Menarche: 11 Duration of menses: 3-5 days Date of last menstrual period: 12/11/23 control method: pills Total pregnancies: 1 Full term: 1 Number of Living Children: 1 Date of last pap smear: 02/01/23 Review of Systems Const All systems reviewed & are unremarkable except as noted in HPI and below Reports as per HPI Eyes Reports no additional complaints ENT Reports no additional complaints Card Reports no additional complaints Resp Reports no additional complaints GI Reports as per HPI and Reports no additional complaints Reports as per HPI Musc Reports no additional complaints Skin/Breast Reports as per HPI Neuro Reports no additional complaints Psych Reports no additional complaints Endo Reports no additional complaints Pro/Lymph Reports no additional complaints Aller/Immun Reports no additional complaints Physical Exam Vital Signs: Last Vital Signs BP 122/84 12/19/23 14:18 BMI result Body Mass Index 36.3 Const General: cooperative, healthy appearing, no acute distress, well developed and alert Orientation/consciousness: patient oriented x3 HEENT Head: Yes normal to inspection Eyes General: appearance normal, both eyes and all related structures Neck Neck: Yes normal visual inspection Thyroid: Thyroid normal Chest Chest palpation & inspection: normal inspection of the chest (Surgical scar right breast) and other (no puckering, dimpling, peau de orange, retraction, discharge, masses) Breast/axilla inspection: normal inspection of the breasts Breast/axilla palpation: normal palpation of the breasts Resp Effort & Inspection: normal respiratory effort GI Inspection: Yes normal to inspection Palpation (GI): Soft to palpation Rectal Exam - Female: deferred General: Yes bladder normal to palpation External Female Exam: normal external appearance and normal appearance of the urethra Speculum Exam - Vagina: normal appearance of the vagina, normal palpation and abnormal vaginal discharge (Slight green, malodorous) Speculum Exam - Cervix: normal appearance of the cervix, normal palpation and Other cervical findings present (Bled with Pap) Bimanual exam- vagina & uterus: normal bimanual exam, normal palpation, uterine size normal, bladder normal to palpation, normal palpation and non-tender Bimanual Exam- Adnexa, other: no masses Skin General skin exam: no rashes or lesions noted Rashes: no rashes Neuro General: patient oriented x3 Cognition (Neuro): normal cognition Extrem General: Yes normal to inspection Psych Attitude: cooperative Thought process: Normal thought process present Assessment & Plan Assessment & Plan (1) Encounter for well woman exam with routine gynecological exam: Code(s): Z01.419 - Encounter for gynecological examination (general) (routine) without abnormal findings Plan Discussed: Current recommendations for pap smears per ASCCP guidelines. Breast awareness and periodic breast exams. Maintain a healthy lifestyle including a well balanced diet and routine exercise. Use condoms for STI and prevention. control hormone use warnings: go to ER if and loss of vision, blindness, s evere headache, chest pain or difficulty breathing, severe abdominal pain, or any pain or swelling in an extremity. Declines STD blood work today. Patient verbalizes understanding and agrees to the plan of care. She was given opportunity to ask questions and all questions were answered to the best of my ability. RTO in one year for annual bmet examination. This note is constructed using voice recognition software. While every effort has been made to ensure accuracy, analytical research chemist errors may have been included. Medications: Refilled norethindrone (contraceptive) (Delia) 0.35 mg PO DAILY 90 days 84 tabs 4RF OCP Coding Level of Care Code Est Pt Prev Care 18-39y(68715) Diagnoses Encounter for well woman exam with routine gynecological exam Z01.419
[2023-12-19 14:18] VITALS: BP 122/84; BMI 36.3
== END 2023-12-19 15:05 | disposition home or self-care (01) ==
LOC: HO.HWS 14:15
PROVIDERS: Visit Provider Advanced Practice Midwife
DX: Z01.419 Encounter for gynecological examination (general) (routine) without abnormal findings (principal)
CPT/HCPCS: 99395

== ENCOUNTER 2025-09-24 13:58 | Emergency (ER) | payer OTHER, SELFPAY ==
--- NOTE | ~2025-09-24 | XR_ITS ---
CLINICAL HISTORY: pain 2 view chest x-ray Comparison: None provided Findings: No consolidation or effusion. Normal size heart. No acute fracture. IMPRESSION: No acute cardiopulmonary findings. This document has been electronically signed by: Jonathan Jacinto MD on 09/24/2025 15:43:20
--- NOTE | ~2025-09-24 | CT_ITS ---
CLINICAL HISTORY: chest pain CT angiography chest with contrast. 3D Postprocessing. Comparison: None provided Findings: NECK BASE: Enlarged thyroid. This would be better evaluated with ultrasound. LUNGS/PLEURA: No focal consolidation. PULM VASCULAR: No pulmonary embolism. MEDIASTINUM: No masses or lymphadenopathy. CARDIAC: No pericardial effusion. No cardiomegaly. AORTA: No aneurysm. CHEST WALL: No masses or axillary lymphadenopathy. LIMITED ABDOMEN: Hepatomegaly partially visualized. BONES: No acute fracture. IMPRESSION: 1. No pulmonary emboli. Incidental findings above. This document has been electronically signed by: Tiny Romo MD on 09/24/2025 19:52:00
--- NOTE | 2025-09-24 14:01 | ECG_ITS ---
Test Reason : CHEST PAIN Blood Pressure : */* mmHG Vent. Rate : 114 BPM Atrial Rate : 114 BPM P-R Int : 136 ms QRS Dur : 90 ms QT Int : 324 ms P-R-T Axes : 12 32 80 degrees QTcB Int : 446 ms Sinus tachycardia Nonspecific ST abnormality Abnormal ECG No previous ECGs available Referred By: Travis Harris Electronically Signed By: FRANK MENCHACA
[2025-09-24 14:47] VITALS: BP 150/70; PULSE 112; RESP 18; TEMP 36.6; O2SAT 98; BMI 35.6
--- NOTE | 2025-09-24 14:49 | ED.GENADULT ---
HPI - General Adult General Chief complaint: General Medical Stated complaint: chest pain Time Seen by Provider: 09/24/25 15:04 Source: patient, RN notes reviewed and old records reviewed Mode of arrival: ambulatory Limitations: no limitations History of Present Illness ED Provider: Safia [facility] narrative: Patient is a 35-year-old female status post 5 months ago, HTN, asthma presenting to the emergency department with complaint of chest pain which she describes as pressure as well as palpitations since this morning. Also complains of ongoing abdominal pain since recent with known ventral hernia. Has also had back pain and right arm pain for the past few days. She states the chest pain is worse with movement and palpation and has improved but not fully resolved since this morning. Denies nausea, vomiting, dyspnea, diaphoresis. Denies history of preeclampsia or gestational hypertension. Reports history of 1 prior but denies any additional abdominal surgeries in the past. MD complaint: chest pain Onset (ago): hour(s) Related Data Home Medications ?Medication ?Instructions ?Recorded ?Confirmed buspirone 10 mg tablet 10 mg PO BID 12/19/23 escitalopram oxalate 10 mg tablet mg PO 12/19/23 Previous Rx's ?Medication ?Instructions ?Recorded norethindrone (contraceptive) 0.35 0.35 mg PO DAILY OCP 90 days #84 12/19/23 mg tablet (Delia) tabs metronidazole 500 mg tablet 500 mg PO BID 7 days #14 tabs 12/25/23 Allergies Allergy/AdvReac Type Severity Reaction Status Date / Time No Known Allergies (No Known Allergy Verified 09/24/25 14:49 Allergies*) Review of Systems Review of Systems: as per HPI Yes all other systems are reviewed and are negative Constitutional: Constitutional: Reports as per HPI [facility] Past Medical History Medical History (Updated 09/24/25 @ 20:47 by Travis Harris) Asthma Abnormal Pap smear of cervix HTN (hypertension) Head ache Depression Surgical History History of lumpectomy of right breast (08/07/22) History of placement of ear tubes Hx of section Family History Family History Mother History of breast cancer Maternal Grandmother Dementia Paternal Grandmother Alzheimer disease Social History Social History Household Members: Family Housing: Apartment Alcohol intake: never Patient Tobacco Use Status: Never used Tobacco Substance Use Type: Marijuana Advance Directives: No Advance Directives Information Provided: No Sexual orientation: Straight/Heterosexual Gender identity: Female Physical Exam ED Vital Signs: Vital Signs - 24 hr 09/24/25 14:47 09/24/25 16:35 09/24/25 19:32 Temperature 98 F Pulse Rate 112 H 120 H 97 Respiratory Rate 18 18 18 Blood Pressure 150/70 H 137/95 H 148/97 H Pulse Oximetry 98 97 100 Oxygen Delivery Method Room Air Room Air Room Air 09/24/25 20:15 Temperature 98.7 F Pulse Rate 97 Respiratory Rate 18 Blood Pressure 138/68 Pulse Oximetry 100 Oxygen Delivery Method Room Air BMI result Body Mass Index 35.6 Vital signs have been reviewed and appear to be correct. Blood pressure normal. Heart rate mildly tachycardic. Respiratory rate normal. Temperature normal. Oxygen saturation normal. Const General: cooperative, healthy appearing and no acute distress Orientation/consciousness: oriented to person, oriented to place, oriented to time and patient oriented x3 Limitations: no limitations HENMT Head: Yes normocephalic and Yes atraumatic Ears: external ears normal General nose exam: Normal external nose present Face and sinus: Yes face symmetric Mouth: oropharynx normal and moist mucous membranes Throat: Yes uvula midline Eyes Pupils: Equal, round and reactive pupils present Neck Neck: Yes normal visual inspection and Yes supple Chest Chest palpation & inspection: normal inspection of the chest and tenderness sternum Resp Effort & Inspection: normal respiratory effort and able to speak in complete sentences Auscultation: clear to auscultation bilaterally Cardio Rate: regular rate Rhythm: regular rhythm Heart sounds: S1 normal heart sound present and S2 normal heart sound present GI Palpation (GI): Soft to palpation, nontender and Hernia present ventral Auscultation: normoactive bowel sounds General: Yes no CVA tenderness Back/Spine/Pelvis Back: no CVA tenderness Skin General skin exam: elasticity normal and turgor normal Neuro General: oriented to person, oriented to place, oriented to time, patient oriented x3, moves all extremities, no focal motor deficits and CN's II-XI intact bilaterally Cranial nerves: Yes Equal, round and reactive pupils present Cognition (Neuro): normal cognition Extrem General: Yes full ROM, Yes no pedal edema and Yes no calf tenderness Psych Mental Status: mental status grossly normal Affect: normal affect Thought process: Normal thought process present Course Course Course Narrative: RME, this is a rapid medical exam performed by James Harris please refer to primary provider for complete H&P- 35 year old female presents for evaluation of chest pain and difficulty swallowing starting this morning. Plan for cardiac workup Reevaluation(s) Reevaluation #1: patient received in sign-out at change of shift pending D-dimer and disposition. The D-dimer was elevated to 314. she can not be ruled out for PE with a diameter, therefore a CT chest angiography will be obtained Time: 18:13 Reevaluation #2: CT angiography does not show any evidence of PE. There was an incidental finding with the enlarged thyroid which I discussed with the patient. I added on a TSH with a reflex T4 and she will also follows up with the primary doctor. She reports to me that she has access to [facility] and does not wish to wait in the emergency department for it. Return precautions were discussed Time: 20:08 Medications Administered Discontinued Medications Generic Name Dose Route Start Last Admin Trade Name Freq PRN Reason Stop Dose Admin Iohexol 100 ml 09/24/25 18:48 09/24/25 18:48 Iohexol 350 Mg/Ml 100 Ml Infus..Btl IV 09/24/25 18:49 65 ml ONCE ONE Administration Medical Decision Making Medical Decision Making [facility] Narrative: Patient is a 35-year-old female status post 5 months ago, HTN, asthma presenting to the emergency department with complaint of chest pain which she describes as pressure as well as palpitations since this morning. On exam patient is awake, A+Ox3, mildly tachycardic, VS otherwise WNL, afebrile, normal neurological exam without focal deficits, physical exam findings as above. Given reported symptoms and physical exam findings, initial differential includes but is not limited to GERD, gastritis, PUD. Do not suspect strangulated/incarcerated hernia. Some concern for PE as patient is mildly tachycardic, will check d-dimer. EKG shows sinus tachycardia. Labs notable for no leukocytosis, no anemia, no significant electrolyte abnormalities, negative initial troponin. X-ray chest notable for no acute abnormalities. My interpretation is in agreement with the radiologist's interpretation. Repeat troponin negative. Patient signed out to GIOVANNI Ramirez pending d-dimer. Differential Diagnosis Differential Diagnoses: The differential diagnosis associated with the presentation includes as per [facility] Admission/Observation Consideration of admission/observation: Escalation of care including admission/observation considered Patient would have been admitted to the hospital and transferred to appropriate facility had their clinical presentation warranted hospital admission. Lab Data [facility] Lab Attestation statement: I reviewed the patient's lab results. as per [facility] 09/24/25 15:01 09/24/25 15:01 Labs: Lab Results 09/24/25 09/24/25 Range/Units 15:01 16:41 WBC 6.6 (4.8-10.8) X10*3/uL RBC 5.01 (4.20-5.50) X10*6/uL Hgb 13.6 (12.0-16.0) g/dl Hct 39.2 (37.0-47.0) % MCV 78.2 L (80.0-98.0) fL MCH 27.1 (27.0-33.0) pg MCHC 34.7 (31.0-35.0) g/dl RDW 13.3 (11.0-16.0) % Plt Count 265 (160-400) X10*3/uL MPV 9.0 L (9.4-12.3) fL Immature Gran % (Auto) 0.3 (0.0-0.4) % Neut % (Auto) 68.1 (45-73) % Lymph % (Auto) 23.6 (20-40) % [place] % (Auto) 4.7 (2-11) % Eos % (Auto) 2.4 (0-4) % Baso % (Auto) 0.9 (0-2) % Lymph # (Auto) 1.6 (1.2-4.9) X10*3/uL [place] # (Auto) 0.3 (0.1-1.2) X10*3/uL Eos # (Auto) 0.2 (0.0-0.4) X10*3/uL Baso # (Auto) 0.1 (0.0-0.2) X10*3/uL Abs Immat Gran (auto) 0.02 (0.00-0.03) X10*3/uL Absolute Neuts (auto) 4.5 (2.0-8.3) x10*3/uL Absolute Nucleated RBC 0.000 (0.0-0.012) X10*3/uL Nucleated RBC % (auto) 0.0 (0.0-0.2) /100WBC D-Dimer High Sensitivty 314 NG/ML Sodium 143 (135-145) mmol/L Potassium 3.9 (3.3-5.1) mmol/L Chloride 109 H (96-108) mmol/L Carbon Dioxide 23 (22-29) mmol/L Anion Gap 15 (12-20) BUN 16 (9-16) mg/dL Creatinine 0.64 (0.5-1.4) mg/dL Estim Creat Clear Calc 141.4 Estimated GFR > 60 Random Glucose 108 (60-115) mg/dL Calcium 10.1 D (8.4-10.2) mg/dL Total Bilirubin 0.4 (0.0-1.0) mg/dL AST 26 (5-31) U/L ALT 42 H (0-31) U/L Alkaline Phosphatase 73 (39-117) U/L Troponin I High Sens < 2.7 < 2.7 (<3.5-17.0) ng/L Total Protein 8.8 H (6.5-8.0) g/dL Albumin 5.0 (3.5-5.0) g/dL TSH 0.16 L (0.32-4.0) uIU/mL Beta HCG, Quant < 2 mIU/mL Influenza Type A (PCR) NEGATIVE (Negative) Influenza Type B (PCR) NEGATIVE (Negative) RSV RNA Qual (PCR) NEGATIVE (Negative) SARS-CoV-2 RNA (RT-PCR) NEGATIVE (Negative) S. pyogenes GrpA SARAH Negative (Negative) Independent Interpretation I performed an independent interpretation of an: EKG (sinus tachycardia rate 114bpm, normal AK interval and QTc) and Plain X-Ray Interpretation: Chest x-ray is without any acute abnormalities. Radiology Impression Discussion of test interpretation with radiology: I have reviewed the radiologist's reading. Radiologist Impression: 2 view chest x-ray Comparison: None provided Findings: No consolidation or effusion. Normal size heart. No acute fracture. IMPRESSION: No acute cardiopulmonary findings. External Record Review External record reviewed: Inpatient record, Office record and Outpatient record Discharge Plan Discharge Clinical Impression: Ventral hernia, Enlarged thyroid Patient Disposition: Home, Self-Care Instructions: Ventral Hernia Repair (DC) Additional Instructions: your CT angiography did not show any concerning blood clots in your lungs pain It did show an incidental finding that your thyroid was enlarged. You should follow up with an outpatient thyroid ultrasound. Return for new or worsening symptoms. I did add on a TSH which we will reflects a T4 or thyroid hormone if it is abnormal. Fall this up with your primary doctor as well You were evaluated in the emergency department today for chest pain. 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 Please schedule an appointment for follow-up with your primary care physician this week. You are being referred to General surgery to discuss options regarding your ventral hernia. Return to the emergency department if you experience worsening or uncontrolled chest pain, shortness of breath, lightheadedness, feeling faint, loss of consciousness, nausea, vomiting, or any other concerning symptoms. Prescriptions: No Action metronidazole 500 mg tablet 500 mg PO BID 7 Days Qty: 14 0RF Rx Instructions: Take with food, Avoid alcohol and vinegar products escitalopram oxalate 10 mg tablet PO buspirone 10 mg tablet 10 mg PO BID norethindrone (contraceptive) [Delia] 0.35 mg tablet 0.35 mg PO DAILY 90 Days Qty: 84 4RF [place]: [facility] [facility] [Provider Group, General Surgery] - 2 weeks Clinical Impression: Ventral hernia Interventions: ED Discharge Assessment Last Done: 09/24/25 20:15 Discharge Date/Time: 09/24/25 20:16 Print Language: Kyrgyz
[2025-09-24 15:06] LABS: MANUAL DIFF FLAG NO
[2025-09-24 15:07] LABS: Hematocrit 39.2 % (37.0-47.0); Hemoglobin 13.6 g/dl (12.0-16.0); Imm Gran Abs Auto 0.02 X10*3/uL (0.00-0.03); Imm Gran Pct Auto 0.3 % (0.0-0.4); Lymphocytes Absolute Auto 1.6 X10*3/uL (1.2-4.9); Mean Corpuscular HGB Conc 34.7 g/dl (31.0-35.0); Mean Corpuscular Hemoglobin 27.1 pg (27.0-33.0); Mean Corpuscular Volume 78.2 fL (80.0-98.0); NRBC Abs Auto 0.000 X10*3/uL (0.0-0.012); NRBC Pct Auto 0.0 /100WBC (0.0-0.2); Platelet Count 265 X10*3/uL (160-400); Red Blood Count 5.01 X10*6/uL (4.20-5.50); White Blood Count 6.6 X10*3/uL (4.8-10.8)
[2025-09-24 15:14] LABS: IDNOW Serial# 55D5AD1C; Strep A Nucleic Acid Negative (Negative)
--- OUTSIDE RECORDS SUMMARY | 2025-09-24 15:24 | XMS_ITS | Clinical Summary ---
Author Organization [facility] Address [address] [facility] [place] [phone] Phone Care Team Providers Care Email Manager Name Role Phone Riaz Garg MD Primary Care Provider Allergies No known active allergies Medications multivitamin with minerals Take by mouth. A ctive acetaminophen (TYLENOL) 325 mg tablet Take 3 tablets (975 mg total) by mouth every 6 (six) hours as needed for pain (specific location in comments). Active Additional Information Patient not taking.Reported on 06/03/2025 ibuprofen (ADVIL,MOTRIN) 600 MG tablet Take 1 tablet (600 mg total) by mouth every 6 (six) hours as needed for pain (specific location in comments). 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 She is requesting to do it . Reviewed with Dr Singh - if she is certain she can return for it at 6 weeks PP, it is reasonable to delay because it is unlikely we will do biopsies during and she has late gestational age Reviewed with patient - she voices understanding and prefers to do it at 6 weeks PP Assessment & Plan (03/25/2025 12:49 PM EDT): ASCUS, HPV pos pap at 32 weeks Counseled patient on recommendation for Colposcopy. She is requesting to do it . Reviewed with Dr Singh - if she is certain she can return for it at 6 weeks PP, it is reasonable to delay because it is unlikely we will do biopsies during and she has late gestational age Reviewed with patient - she voices understanding and prefers to do it at 6 weeks PP Elevated blood pressure affe cting in third trimester, antepartum 03/18/2025 Overview (03/18/2025): 1 mild elevation before pap smear on 03/11/25 HELLP labs normal P/C ratio was not done Recheck BP in 1 week Assessment & Plan (04/29/2025 3:28 PM EDT): Normotensive today Assessment & Plan (04/15/2025 2:15 PM EDT): Her blood pressure today is normal and she has no signs or symptoms of preeclampsia. Assessment & Plan (04/09/2025 7:03 PM EDT): Normotensive Assessment & Plan (03/25/2025 12:53 PM EDT): BP normotensive BPs at home have been 110/80, 124/86, 134/62, 90/60, 120/82 Previously Done HELLP labs and P/C ratio normal Assessment & Plan (03/18/2025 3:00 PM EDT): She had one elevated blood pressure earlier in the month with a subsequently normal blood pressure. Her lab work at that time was normal but no PC ratio was done. Since that time, she has had persistent proteinuria. Therefore, a urine protein creatinine ratio was sent from the office today. She has no signs or symptoms of preeclampsia including headache, blurry vision, right upper quadrant pain, or edema. She has been taking her blood pressure at home on a daily basis as well. She did have 1 reading of 110/90 and another reading of 122/90. It is not clear whether she took these properly as they were done shortly after movement. I did review the diagnosis of gestational hypertension as to elevated blood pressures by at least 4 hours. We will see her back in 1 week in the office here to recheck her blood pressure. She was directed to call us if she develops any of the symptoms as outlined above. Assessment & Plan (03/18/2025 12:45 PM EDT): Initial BP mildly elevated- 138/90 - Gretchen felt it was related to being nervous for Pap smear Denies MUNGUIA,vision changes, RUQ pain Repeat after pap 122/84 HELLP labs sent today to be thorough Significant discrepancy celso lujan uterine size and clinical dates, antepartum 02/18/2025 Overview (03/18/2025): Taped to 35 at 28+5 wks. Growth US ordered 03/11: EFW at 63rd percentile. Assessment & Plan (04/15/2025 2:15 PM EDT): Ultrasound done today shows the EFW at the 87th percentile with the AC greater than 98th percentile. Assessment & Plan (04/09/2025 7:04 PM EDT): Measuring S>D again today. Last EFW was 03/11. Will order repeat US for growth and BPP next week Assessment & Plan (03/18/2025 2:38 PM EDT): EFW is at the 63rd percentile on her ultrasound from March 11. Assessment & Plan (03/18/2025 12:44 PM EDT): US today shows EFW 63%, CHERELLE 14 BPP 06/10 Assessment & Plan (02/18/2025 11:05 AM EDT): Taped to 35 at 28+5 wks. Growth US ordered Abdominal wall hernia 12/31/2024 Assessment & Plan (01/03/2025 4:34 PM EST): Abdomen hernia just above the umbilicus noted. No pain Discussed surgical consult post op Cytology examination positiv e for high risk human papillomavirus (HPV) 10/06/2024 Overview (03/25/2025): 2023 pap NIL, HPV+, did not have follow-up. Open to pap at [facility] on 11/08/24 Pap hx 04/2021 NIL, HPV pos (16/18/45 neg) 12/04/22 NIL, HPV neg 12/19/23 NIL, HPV pos (16/18/45 neg) 03/2025 ASCUS, HPV pos (16/18/45 neg) NEEDS COLPO at 6 weeks PP (delayed d/t pt GA) Assessment & Plan (03/25/2025 12:49 PM EDT): Needs Colpo at 6 weeks PP Assessment & Plan (03/18/2025 12:41 PM EDT): Repeat pap sent today Assessment & Plan (02/18/2025 10:51 AM EDT): Pt declines pap today. States she feels better completing at [facility]. Will do at [facility] Assessment & Plan (01/28/2025 2:29 PM EDT): Gretchen has not yet had pap. Provider at [facility] keeps cancelling appointments. I recommended that we should do it here and reviewed the risks of enma risk HPV with no follow up. She would like to call [facility] on Friday to see if she can get in with her provider. If not we can do pap at next visit. Assessment & Plan (12/30/2024 6:10 AM EST): Pap is scheduled for January with [facility] per patient preference. She will send us results. Assessment & Plan (11/08/2024 11:04 AM EST): Gretchen declined pap today- please check in at next visit. Supervision of high-risk , third trimes ter 09/17/2024 Overview (04/13/2025): Needs KAYLA for prior C/S and wound infection CNM Group PN care? No screening Plans cfDNA & carrier screen Baby ASA? NI Rh POS GC/Chlam Neg/neg PAP * Flu Given 10/06/24 COVID-19 * Hgb 12.0 GTT 126 Repeat RPR NR Tdap Done RSV not needed d/t season EPDS * PPBC * Not planning BTL GBS neg Feeding Plan Breast Assessment & Plan (04/29/2025 3:29 PM EDT): Gretchen is counting down the days (4) until her ! Ready to have this baby. Feeling good movement. Having some contractions but nothing regular. Knows to call if she is having labor symptoms. Has the pre-op wash and will start on Friday. No other questions or concerns. Assessment & Plan (04/24/2025 3:40 PM EDT): Gretchen is a 34 y.o. at 37w5d doing well. Has been having increasing contractions but not more than 3-4 an hour. Denies bleeding/LOF. Really hoping to make it to her C/S date. VE closed/long/posterior. We reviewed s/s of labor and when to call GBS negative reviewed. Assessment & Plan (04/15/2025 2:14 PM EDT): She notes good movement. She denies any vaginal bleeding, leakage fluid, or regular contractions. Overall, she is doing well. Assessment & Plan (04/09/2025 7:09 PM EDT): Gretchen is a 34 y.o. at 35w5d doing well. Denies VB/LOF. + FM. Has been having some more cramping/contractions some that feel quite strong but not more than 2/hr. VE today ft/soft/posterior. Discussed s/s of labor and when to call. GBS collected today Assessment & Plan (03/25/2025 12:51 PM EDT): Gretchen is a 34 y.o. at 33w5d doing well. Denies VB/LOF/Ctxs. + FM. Has baby shower this weekend! Asking about if her 10 year old can stay with her in the hospital for the first night PP. I reviewed I would check with the Nurse Environmental Research Scientist and follow up with her. Reviewed it will be likely that there will need to be another adult with the daughter (10) at all times. TDAP today. Assessment & Plan (03/18/2025 2:36 PM EDT): She notes good movement. She denies any vaginal bleeding, leakage of fluid, or regular contractions. Overall, she is doing well. Assessment & Plan (03/18/2025 12:41 PM EDT): Gretchen is a 34 y.o. at 31w5d doing well. Denies VB/LOF/Ctxs. + FM. TDAP at [place] Assessment & Plan (02/18/2025 11:06 AM EDT): Gretchen is feeling well. Feels this is flying by. Baby very active. She denies vb, lof, ctxs Declines Pap today, says she wants to mentally prepare and will do at [facility]. Reviewed normal 28 wk labs MÓNICA 2 wks Assessment & Plan (01/28/2025 2:30 PM EDT): Gretchen is doing well. Baby is very active. Concerned about hernia. Has significant diastasis above umbilicus and umbilical hernia. Precautions and warning signs reviewed. Did labs today. Assessment & Plan (12/31/2024 3:50 PM EST): Gretchen is a 34 y.o. at 21w5d doing well. Denies VB/LOF/Ctxs. + FM. Discussed labs and orders placed for 26-28 weeks. Reviewed Anatomy US - normal. Assessment & Plan (11/30/2024 2:03 PM EST): Gretchen is a 34 y.o. at 17w2d states she feels okay, has been feeling tired and having some occasional vomiting, but notes that nausea and energy have greatly improved since T1. Here with her sister. Has level II scheduled next month. Offered AFP, declines. Is due for repeat PAP - has an appt scheduled with her CNM Soraya Keyes at [facility] next month and reports she prefers to do it with her as she feels so comfortable with her. Assessment & Plan (11/08/2024 11:03 AM EST): Gretchen is doing well today- here with her sister. She has no questions today. Happy to hear strong HB. Reviewed need to reschedule anatomy scan as it was scheduled too early given change in MILADIS from ultrasound and level 2 is needed. History of delivery affecting 09/17/2024 Overview (01/03/2025): Date of surgery: 2014 at [facility] Reason for prior : NRFHTs at 7 cm Incision type: [facility] Records requested/reviewed: Contraindications to TOLAC include > 2 prior births, prior uterine rupture or dehiscence, prior transfundal incision (classical, T, or J incisions; myomectomy with incision into uterine cavity or by surgeon's discretion), interpregnancy interval < 6 months Anterior placenta Yes, Level 2 done and no concern for acreta If anterior, schedule level 2 US Delivery route counseling: Preferred mode of delivery: Desires RCS Consent signed: If calculator score <60%, schedule MD consult at 35-37 weeks Calculator: [email or web address]/[email or web address]/lsdamvz-[email or web address]-[email or web address]--emani culat or Assessment & Plan (04/15/2025 2:15 PM EDT): Plan is to proceed with repeat section. Pre-op was done today. Assessment & Plan (04/09/2025 7:05 PM EDT): Has not yet been scheduled for Repeat CS - crayon sorting machine feeder who will get her scheduled for repeat CS. Assessment & Plan (03/25/2025 12:52 PM EDT): Planning repeat C/S We have not received any records yet indicating wound infection from last , requesting from [facility] ED. Gretchen reports it may have been a wound infection or a reaction to sutures, she is not sure. Assessment & Plan (03/18/2025 12:41 PM EDT): Planning repeat C/S Assessment & Plan (12/31/2024 3:47 PM EST): Planning repeat C/S - case request placed. She reports that she had a wound infection and she was told she was allergic to stitches after her last C/S. I recommended we request records - we forgot to do records release today - need to do at [facility]. Assessment & Plan (11/08/2024 11:01 AM EST): Reviewed recommendation for level 2 ultrasound given anterior placenta. Request sent to schedule. Anxiety and depression 09/17/2024 Overview (09/17/2024): Has anxiety and depression and panic disorder - sees a therapist. Was taking Lexapro and Buspar. Came off as soon as she found out she was . Sees a med prescriber with [facility] whom she hasn't seen yet in the . Currently feeling fine because she is not working. -She wants to wait and see how she feels and will restart meds if needed Assessment & Plan (06/03/2025 2:39 PM EDT): Gretchen is a 34 yo 4 wks s/p planned RCS. She reports feeling ok states mood is stable but more depressed. Denies anxiety and panic. States she doesn't want to go outside most days due to fatigue and not being motivated. Reports feeling mostly overwhelmed. Baby is sometimes fussy d/t cholic and she needs to ask for help. Pt lives with her mom, FOB not involved. Gets great family support from her sister as well. Was well connected with [facility] (prescriber and therapist) in and plan was for her to contact them and resume care pp. Pt agrees to do that today. Pt denies SI, HI. Feels able to care for herself and baby. Endorses great family support. We discussed importance of connecting with [facility], reviewed s/sx of worsening depression, crisis info and when/how to get support. RTO 2 wks ppv Assessment & Plan (11/30/2024 2:02 PM EST): Was feeling down in the beginning of after coming off of medications and now doing a lot better . Feels she has good supports in place with therapist, etc. Assessment & Plan (10/06/2024 5:31 PM EST): Reinforced the above at the FOB appt-- she has her first appt soon and is happy to know these meds are safe if she decides to pursue. Feels well-supported by her mom and her therapist. Assessment & Plan (09/17/2024 11:46 AM EST): Has anxiety and depression and panic disorder - sees a therapist. Was taking Lexapro and Buspar. Came off as soon as she found out she was . Sees a med prescriber with [facility] whom she hasn't seen yet in the . Currently feeling fine because she is not working. -She wants to wait and see how she feels and will restart meds if needed Resolved Problems Problem Noted Date Diagnosed Date Resolved Date Candidal intertrigo 03/18/2025 03/25/20 25 Assessment & Plan (03/18/2025 12:47 PM EDT): Noticing itching and a yeasty odor in abdominal fold at bottom of abdomen. On exam there is erythema consistent with Michelle. Rx Nystatin Triamcinolone to apply BID x 7 days Reviewed to keep area clean and dry as much as possible. Immunizations Immunization Administration Dates Next Due DTP 05/27/1995, 2,09/03/1991,1990,1990 DTaP 04/18/2015 Influenza Quadrivalent MDCK Preservative Free IM 09/07/2021 MMR 01/08/2023,05/27/1995,09/25/1992 Td, unspecified formulation 01/12/2004 Tdap 03/25/2025,05/27/2012 Family History Medical History Relation Comments Alzheimer's disease Maternal Grandmother Arthritis Mother Breast cancer Mother Depression Mother Fibroids Mother Heart disease Mother Osteopenia Mother Thyroid disease Mother Lung cancer Paternal Aunt Dementia Paternal Grandmother Psoriasis Sister 1 Relation Status Comments Half-Sister Alive Maternal Grandmother Mother Alive Paternal Aunt Paternal Grandmother Alive Sister 1 Alive Sister 2 Alive Sister 3 Alive Social History Tobacco Use Types Packs/Day Years Used Date Smoking Tobacco: Never Smokeless Tobacco: Never Tobacco Cessation:Counseling Given: Not Answered Alcohol Use Standard Drinks/Week Comments Not Currently 0 (1 standard drink = 0.6 oz pur e alcohol) Education Answer Date Recorded Are you interested in more education? Not on irene e 09/06/2024 Are you concerned about learning? Not on file 09/06/2024 No 09/06/2024 No 09/06/2024 Digital Access Answer Date Recorded No 09/06/2024 No 09/06/2024 Reliable internet access at home? Not on file 09/06/2024 Device with a working camera? Not on file Intimate Partner Violence Answer Date R ecorded Are you denied basic needs s uch as food, clothing, or medical care? No 05/03/2025 In the past 12 months have y ou been in a relationship with a person who hurts, threatens, or tries to control you? No 05/03/2025 Are you denied basic needs s uch as food, clothing, or medical care? No 05/03/2025 In the past 12 months have y ou been in a relationship with a person who hurts, threatens, or tries to control you? No 05/03/2025 Comments No Sex and Gender Information Value Date Recorded Sex Assigned at Female 09/17/2024 11:51 AM EST Legal Sex Female 10:51 AM EST Gender Identity Female 09/17/2024 11:51 AM EST Sexual Orientation Choose not to disclose 2024 8:34 AM EDT Last Filed Vital Signs Vital Sign Reading Time Taken Comments Blood Pressure 122/82 06/16/2025 3:30 PM EDT Pulse 76 05/05/2025 11:00 AM EDT Temperature 36.5 C (97.7 F) 05/05/2025 11:00 AM EDT Respiratory Rate 18 05/05/2025 11:00 AM EDT Oxygen Saturation 98% 05/05/2025 11:00 AM EDT Inhaled Oxygen Concentration - - Weight 96.6 kg (213 lb) 06/16/2025 3:30 PM EDT Height 162.6 cm (5' 4 ) 06/03/2025 2:04 PM EDT Body Mass Index 36.56 06/03/2025 2:04 PM EDT Plan of Treatment Health Maintenance Due Date Last Done Comments DEPRESSION SCREENING 2002 INFLUENZA VACCINE (#1) 2025 09/07/2021 SCREENING FOR DIABETES 2025 COVID-19 VACCINE ( season) 2025 09/20/2022, 11/22/2021, 11/29/2020, Additional history exists BLOOD PRESSURE 12/17/2025 06/16/2025 PAP SMEAR 03/11/2028 03/11/2025 Adult Td,Tdap Booster 03/25/2035 03/25/2025 , 05/27/2012, 01/12/2004 HEPATITIS C SCREENING Completed 10/11/2024, 024 HIV ONE-TIME SCREENING (18-65 YEARS) Completed 10/11/2024 SMOKING STATUS SCREENING (Once After 26 Yrs) Completed 04/29/2025 HEPATITIS A VACCINES Aged Out No long er eligible based on patient's age to complete this topic HIB VACCINES Aged Out No longer eligi ble based on patient's age to complete this topic MENINGOCOCCAL VACCINES (ACWY) Aged Out No longer eligible based on patient's age to complete this topic MENINGOCOCCAL VACCINES (B) Aged Out N o longer eligible based on patient's age to complete this topic PNEUMOCOCCAL VACCINES (0-49 years) Aged Out No longer eligible based on patient's age to complete this topic Medical Devices Not on file Procedures Procedure Name Priority Date/Time Associated Diagnosis Comments PAP TEST Routine 03/11/2025 12:00 AM EDT HEPATITIS C ANTIBODY, QUALITATIVE Routine 10/11/2024 3:31 PM EST Need for hepatitis C screening test from Last 3 Months or Most Recently Relevant to Health Maintenance Results * Pap Test (03/11/2025 12:00 AM EDT) Report [address] [address] Pattern Repair Person: Sal Parrish MD PROFESSIONAL ATHLETE Cytology Report FINAL DIAGNOSIS A. PAP SMEAR (THIN PREP) CE: SPECIMEN ADEQUACY: Satisfactory for evaluation; transformation zone absent/insufficient . INTERPRETATION: EPITHELIAL CELL ABNORMALITY - SQUAMOUS. Atypical squamous cells of undetermined significance. This specimen was analyzed by the automated ThinPrep Imaging System ([employer].) and manually rescreened by a wiping cloth cutter and/or pathologist. Electronically Signed Out By: ANGELITA Bear MD(ASCP) By his/her signature above, the pathologist listed as making the Final Diagnosis certifies that he/she has personally reviewed this case and confirmed or corrected the diagnosis. The Pap test is a screening test primarily for squamous cancers and precursors and has associated false-negative and false-positive results. New technologies such as liquid-based preparations may decrease but will not eliminate all false-negative results. Regular sampling and follow-up of unexplained clinical signs and symptoms are recommended to minimize false negative results. PROCEDURES/ADDENDA HPV Testing (Requested) Ordered Date: 03/14/2025 A. PAP SMEAR (THIN PREP) CE: High-risk HPV Panel w/ extended genotyping POS HPV 16-NEG HPV 18-NEG HPV 45-NEG HPV 33/58-POS HPV 31-NEG HPV 56/59/66-NEG HPV 51-NEG HPV 52-NEG HPV 35/39/68-POS Performed by real-time polymerase chain reaction (PCR) at [facility], [address] [place] [address] using the FDA-approved BD Onclarity HPV Assay with extended genotyping. Uses of the assay in scenarios other than those approved by the FDA should be considered off-label use. The accuracy and precision of this test for all other off-label specimen sources has been verified in the Cytopathology Laboratory of the [facility] and has not been cleared or approved by the U.S. Food and Drug Administration. Clinical correlation is advised. The assay assesses the E6/E7 DNA target and utilizes human beta globin as an internal control. Cytology and HPV testing are screening assays and should not be used as the sole means of detecting cancer. False-positives and false-negatives can occur. CLINICAL HISTORY Date of Last Menstrual Period: 07-19-2024 Menstrual History: Infection History: HPV: 2024 Other Clinical Conditions: Screening Pap SPECIMEN SOURCE A: PAP SMEAR (THIN PREP) CE Patient Name: GRETCHEN OSULLIVAN : 1990 (Age: 34) Sex: F Institution: [facility] Location: [facility] Date of Collection: 03/11/2025 Date of Reported: 03/17/2025 11:07 Results to: Steffany Sheriff [facility] Final Diagnosis A. PAP SMEAR (THIN PREP) CE: SPECIMEN ADEQUACY: Satisfactory for evaluation; transformation zone absent/insufficient . INTERPRETATION: EPITHELIAL CELL ABNORMALITY - SQUAMOUS. Atypical squamous cells of undetermined significance. This specimen was analyzed by the automated ThinPrep Imaging System (Novavax AB.) and manually rescreened by a wiping cloth cutter and/or pathologist. Results\Inte rpretation A. PAP SMEAR (THIN PREP) CE: High-risk HPV Panel w/ extended genotyping POS HPV 16-NEG HPV 18-NEG HPV 45-NEG HPV 33/58-POSHPV 31-NEG HPV 56/59/66-NEG HPV 51-NEG HPV 52-NEG HPV 35/39/68-POS Performed by real-time polymerase chain reaction (PCR) at [facility], [address] [place] [address] using the FDA-approved BD Onclarity HPV Assay with extended genotyping. Uses of the assay in scenarios other than those approved by the FDA should be considered off-label use. The accuracy and precision of this test for all other off-label specimen sources has been verified in the Cytopathology Laboratory of the [facility] and has not been cleared or approved by the U.S. Food and Drug Administration. Clinical correlation is advised. The assay assesses the E6/E7 DNA target and utilizes human beta globin as an internal control. Cytology and HPV testing are screening assays and should not be used as the sole means of detecting cancer. False-positives and false-negatives can occur. Conversion Type (Conversion Source) 03/11/2025 03/14/2025 10:13 AM EDT us Steffany Sheriff CNM CYTOLOGY ORDERABLES Edited Resu lt - Final Performing Organization Address City/[facility]/ZIP Co de Phone Number [address] [address] * Hepatitis C antibody, qualitative (10/11/2024 3:31 PM EST) HCV NON-REACTIV E NON-REACTI VE Blood 10/11/2024 3:31 PM EST 10/11/2024 3:34 PM EST us Steffany Sheriff CNM LAB BLOOD BKR ORDERABLES Final Result Performing Organization Address [facility] Co de Phone Number [address] [address] from Last 3 Months or Most Recently Relevant to Health Maintenance Insurance [employer] [place] [address] [place] [address] [facility] * Guarantor: Gretchen Osullivan Account Type Relation to Patient Date of Phone Billing Address Personal/Family Self [address] [place] [address] [facility] [employer] * Guarantor: Gretchen Osullivan Account Type Relation to Patient Date of Phone Billing Address Personal/Family Self [address] [place] [address] [facility] [employer] Advance Directives For more information, please contact: [phone] (9AM - 5PM Jennifer/[facility], Friday-Friday) Documents on File Type Date Recorded Patient Art Display Maker Expl anation Healthcare Proxy 05/10/2025 1:58 PM * Full Code (Latest Code Status on File) Date Activated Date Inactivated Comments 05/03/2025 9:54 AM Question Answer Comments Code Status Confirmed With: Patient * Full Code Date Activated Date Inactivated Comments 05/03/2025 5:28 AM 05/03/2025 9:54 AM Question Answer Comments Code Status Confirmed With: Patient Care Teams Email Manager Relationship Specialty Start Date End Date Riaz Garg MD [address] [place] [id number] PCP - General Internal Medicine 04/29/25 Additional Source Comments The information contained in this document represents components of the legal health record. It is not the complete legal health record.[facility]
--- OUTSIDE RECORDS SUMMARY | 2025-09-24 15:24 | XMS_ITS | Encounter Summary ---
Author Organization [facility] Address [address] [facility] [address] [place] [phone] Phone Care Team Providers Care Collator Hand Name Role Phone Riaz Garg MD Primary Care Provider Encounter Details Date Type Department Care Team (Late st Contact Info) Description 05/03/2025 Procedure Pass [facility] [address] [place] [address] Social History Tobacco Use Types Packs/Day Years Used Date Smoking Tobacco: Never Smokeless Tobacco: Never Alcohol Use Standard Drinks/Week Comments Not Currently [...] not to disclose 2024 8:34 AM EDT documented as of this encounter Functional Status * Calculated C-SSRS Risk Score (Lifetime/Recent) Answer Date of Assessment Author No Risk Indicated 05/03/2025 5:49 AM EDT Makenzie Dotson RN * [place] Suicide Severity Rating Scale (Screener/Recent Self-Report) Question Answer Date of Assessment Author 1. Wish to be (Past 1 Month) No 025 5:49 AM EDT Makenzie Arrington RN 2. Non-Specific Active Suici ana Thoughts (Past 1 Month) No 05/03/2025 5:49 AM EDT Roro Arrington RN 6. Suicidal Behavior (Lifetime) No 5:49 AM EDT Makenzie Arrington RN documented as of this encounter Plan of Treatment Not on file documented as of this encounter Visit Diagnoses Not on filedocumented in this encounter Care Teams Collator Hand Relationship Specialty Start Date End Date Riaz Garg MD [address] [place] [address] PCP - General Internal Medicine 04/29/25 documented as of this encounter Additional Source Comments The information contained in this document represents components of the legal health record. It is not the complete legal health record.[facility]
--- OUTSIDE RECORDS SUMMARY | 2025-09-24 15:24 | XMS_ITS ---
Author Name [facility] Organization Unknown Care Team Organization Name Specialty Phone Email Start Date End Da te [facility] JAHAIRA SALMON Primary Care 03/10/2023 06/21/2024 [facility] JOSE QUINTANA Primary Care 09/10/2022 06/21/20 24
--- OUTSIDE RECORDS SUMMARY | 2025-09-24 15:24 | XMS_ITS | Encounter Summary ---
Author Organization [facility] Address [address] [place] [phone] Phone Care Team Providers Care Container Repairer Name Role Phone Unavailable Primary Care Provider Unavailabl e Encounter Details Date Type Department Care Team (Late st Contact Info) Description 06/19/2017 Conversion Encounter [facility] - [address] [phone] Social History Tobacco Use Types Packs/Day Years Used Date Smoking Tobacco: Never Assessed Comments Unknown Sex and Gender Information Value Date Recorded Sex Assigned at Not on file Legal Sex Female 4:19 PM EDT Gender Identity Not on file Sexual Orientation Not on file documented as of this encounter Plan of Treatment Not on file documented as of this encounter Visit Diagnoses Not on filedocumented in this encounter
--- OUTSIDE RECORDS SUMMARY | 2025-09-24 15:24 | XMS_ITS | Clinical Summary ---
Author Organization [facility] Address [address] [place] [phone] Phone Care Team Providers Care Benefits Specialist Recruiter Name Role Phone Unavailable Primary Care Provider Unavailabl e Immunizations Immunization Administration Dates Next Due DTP 05/27/1995, 2,09/03/1991,1990,1990 Hep B, ped/adol 08/18/2000,05/16/2000,04/16/2000 Hib (PRP-T) 09/03/1991,1990,1990 MMR 05/27/1995,09/25/1992 OPV 05/27/1995, 2,1990,1989 Td (adult) (MBL), 2 Lf tetan us toxoid, PF, adsorbed 01/12/2004 Family History Relation Name Status Comments Mother Mother: Thyroid disease, Depression Other aunt: Bipolar d isorder Sister Alive Sister: Strabis mus/amblyopia Social History Tobacco Use Types Packs/Day Years Used Date Smoking Tobacco: Never Assessed Comments Unknown Sex and Gender Information Value Date Recorded Sex Assigned at Not on file Legal Sex Female 4:19 PM EDT Gender Identity Not on file Sexual Orientation Not on file Plan of Treatment Health Maintenance Due Date Last Done Comments Varicella Vaccines (1 of 2 - 13+ 2-dose series) 2003 DTaP,Tdap,and Td Vaccines (6 - Tdap) 01/13/2004 01/12/2004, 05/27/1995, 09/25/1992, Additional history exists HPV Vaccines (1 - 3-dose SCDM series) 2017 Influenza Vaccines (#1) 2025 COVID-19 Vaccine ( season) 2025 HIB Vaccines Completed 09/03/1991, 06/1991, 1990 IPV Vaccines Completed 05/27/1995, 09/04, 1990, Additional history exists MMR Vaccines Completed 05/27/1995, 09/25/1992 Hepatitis B Vaccines Completed 08/18/2000, 05/16/2000, 04/16/2000 Hepatitis A Vaccines Aged Out No long er eligible based on patient's age to complete this topic Men B Vaccine Aged Out No longer elig ible based on patient's age to complete this topic Meningococcal Vaccine Aged Out No abel ludy eligible based on patient's age to complete this topic Pneumococcal Vaccine Aged Out No long er eligible based on patient's age to complete this topic
[2025-09-24 15:26] LABS: Alanine Aminotransferase 42 U/L (0-31); Albumin Level 5.0 g/dL (3.5-5.0); Alkaline Phosphatase 73 U/L (39-117); Anion Gap 15 (12-20); Aspartate Amino Transferase 26 U/L (5-31); Blood Urea Nitrogen 16 mg/dL (9-16); Calcium 10.1 mg/dL (8.4-10.2); Carbon Dioxide 23 mmol/L (22-29); Chloride 109 mmol/L (96-108); Creatinine Clr Calc Pharmacy 141.4; Estimated Glomerular Filt Rate > 60; Potassium 3.9 mmol/L (3.3-5.1); Sodium 143 mmol/L (135-145); Total Protein 8.8 g/dL (6.5-8.0)
[2025-09-24 15:36] LABS: Troponin-I High Sensitivity < 2.7 ng/L (<3.5-17.0)
[2025-09-24 15:47] LABS: Resp Syncy Virus RNA Qual PCR NEGATIVE (Negative); SARS COV2 PCR INHOUSE NEGATIVE (Negative)
[2025-09-24 16:35] VITALS: BP 137/95; PULSE 120; RESP 18; O2SAT 97
[2025-09-24 17:38] LABS: Troponin-I High Sensitivity < 2.7 ng/L (<3.5-17.0)
[2025-09-24 17:59] LABS: D Dimer High Sensitivity 314 NG/ML
[2025-09-24] MEDS: iohexoL 350 MG/ML 100 ML INFUS..BTL IV (18:48)
[2025-09-24 19:32] VITALS: BP 148/97; PULSE 97; RESP 18; O2SAT 100
[2025-09-24 20:15] VITALS: BP 138/68; PULSE 97; RESP 18; TEMP 37.1; O2SAT 100
[2025-09-24 21:22] LABS: Free T4 (Free Thyroxine) 1.09 ng/dL (0.71-1.85)
== END 2025-09-24 20:16 | disposition home or self-care (01) ==
PROVIDERS: Physician Assistant; Registered Nurse Emergency; Emergency Provider Emergency Medicine Emergency Medical Services
DX: K43.9 Ventral hernia without obstruction or gangrene (principal); E04.9 Nontoxic goiter, unspecified; R00.0 Tachycardia, unspecified; I10 Essential (primary) hypertension; Z79.899 Other long term (current) drug therapy
CPT/HCPCS: 36415; 71046; 71275; 80053; 84439; 84443; 84484; 84702; 85025; 85379; 87637; 87651; 93005; 99284; 99285; Q9967

== ENCOUNTER → 2025-09-24 14:01 | Outpatient (BNV) | payer OTHER, SELFPAY | PROVIDERS: Emergency Provider Emergency Medicine Emergency Medical Services; Visit Provider Internal Medicine | DX: R00.0 Tachycardia, unspecified (principal) | CPT/HCPCS: 93010 ==